=== PATIENT | male | born 1985 | race Caucasian/White ===

== ENCOUNTER 2016-09-07 09:44 | Inpatient (IN) | payer MEDICAID ==
[~2016-09-07] VITALS: Ht 175.3 cm; Wt 152.9 kg
[2016-09-07] VITALS (25 sets, daily range): BP systolic 122–154; BP diastolic 65–103
[2016-09-07] MEDS ORDERED: FURO40TA5 PO (10:03)
[2016-09-07] MEDS ORDERED: METF500T4 PO (10:03)
[2016-09-07] MEDS ORDERED: FUROSEMIDE 40MG/4ML VIAL IV STA (10:30)
[2016-09-07] MEDS: NITROGLYCERIN OINT 1GM/INCH UDPKT TD STA (10:30)
[2016-09-07] MEDS ORDERED: VANCOMYCIN 1 G PREMIX 200 ML IV SCH (10:45)
[2016-09-07] MEDS ORDERED: ASPIRIN 325MG EC TABLET PO ONE (10:45)
[2016-09-07] MEDS ORDERED: CEFTRIAXONE 1 G PREMIX 50 ML IV ONE (10:45)
[2016-09-07 10:57] LABS: BG BASE EXCESS 7.3 mmol/L (-2.0-2.0); BG CARBOXYHEMOGLOBIN 5.7 % (0.5-1.5); BG DEOXYHEMOGLOBIN 6.3 % (0.0-5.0); BG HCO3 ACT 36.8 mmol/L (22.0-26.0); BG METHEMOGLOBIN 0.1 % (0.0-1.5); BG OXYGEN SATURATION 93.3 % (92.0-98.5); BG OXYHEMOGLOBIN 87.9 % (94.0-97.0); BG PH 7.303 (7.350-7.450); BG PO2 70.7 mmHg (75.0-100.0); BG SAMPLE SITE LEFT RADIAL; BG TOTAL HEMOGLOBIN 14.9 g/dL (12.0-18.0); BG VENT MODE NASAL CANNULA
[2016-09-07] MEDS ORDERED: ETOMIDATE 2MG/ML 10ML VIAL IV ONE ×2 (11:09→16:45)
[2016-09-07] MEDS ORDERED: STERILE WATER FOR INJECTION 10ML VIAL ONE (11:09)
[2016-09-07] MEDS ORDERED: VECURONIUM BROMIDE 10 MG/VIAL IV ONE ×3 (11:09→16:45)
[2016-09-07 11:35] LABS: BASOPHILS % 0.4 % (0.0-2.0); DIFFERENTIAL COMMENT 0; EOSINOPHILS % 0.7 % (0.0-5.0); HEMATOCRIT. 46.7 % (42.0-52.0); HEMOGLOBIN. 14.4 g/dL (14.0-18.0); LYMPHOCYTES % 16.3 % (20.0-50.0); MEAN CORPUSCULAR HEMOGLOBIN 26.3 pg (28.0-32.0); MEAN CORPUSCULAR HGB CONC 30.9 g/dL (31.0-37.0); MEAN CORPUSCULAR VOLUME 85.1 fL (80.0-94.0); MEAN PLATELET VOLUME 9.7 fl (7.4-10.4); MONOCYTES % 6.3 % (2.0-8.0); NEUTROPHILS % 76.3 % (40.0-76.0); PLATELET 232 x1000/uL (130-400); RED BLOOD CELL COUNT 5.49 mill/uL (4.7-6.1); RED CELL DISTRIBUTION WIDTH 17.3 % (11.6-14.6); WHITE BLOOD COUNT 10.4 x1000/uL (4.5-11.0)
[2016-09-07 11:36] LABS: INR 1.1; PROTHROMBIN TIME 11.4 sec
[2016-09-07 11:44] LABS: ALANINE AMINOTRANSFERASE 62 IU/L (13-61); ALBUMIN 3.1 g/dL (3.4-5.0); CALCIUM 8.4 mg/dL (8.5-10.1); CARBON DIOXIDE 38 mEq/L (21-32); INDEX HEMOLYSI 1 (1-3); INDEX ICTERIC 1 (1-4); INDEX LIPEMIC 1 (1-3); NT PRO B-TYPE NATRIURETIC PEP 2189 pg/mL (5-125); TROPONIN I 0.05 ng/mL (0.00-0.04); UREA NITROGEN BLOOD 9 mg/dL (7-21); eGFR > 60 mL/min (>60)
[2016-09-07 12:05] LABS: ANION GAP 8; CHLORIDE 94 mEq/L (98-107)
[2016-09-07] MEDS ORDERED: GUAIFENESIN 200MG/10ML SUGAR FREE UDC PO PRN (15:30)
[2016-09-07] MEDS ORDERED: HYDRALAZINE 20MG/ML VIAL IV ONE (15:30)
[2016-09-07] MEDS ORDERED: CLONIDINE 0.1MG TABLET PO PRN (15:30)
[2016-09-07] MEDS ORDERED: MAGNESIUM/ALUMINUM HYDROXIDE/SIMETHICONE 30ML UDC PO PRN (15:30)
[2016-09-07] MEDS ORDERED: DOCUSATE SODIUM 100MG CAPSULE PO PRN (15:30)
[2016-09-07 16:14] LABS: BG BASE EXCESS 8.6 mmol/L (-2.0-2.0); BG CARBOXYHEMOGLOBIN 4.4 % (0.5-1.5); BG DEOXYHEMOGLOBIN 1.9 % (0.0-5.0); BG HCO3 ACT 44.4 mmol/L (22.0-26.0); BG METHEMOGLOBIN 0.3 % (0.0-1.5); BG OXYHEMOGLOBIN 93.4 % (94.0-97.0); BG PCO2 141.8 mmHg (35.0-45.0); BG PH 7.114 (7.350-7.450); BG PO2 139.9 mmHg (75.0-100.0); BG SAMPLE SITE LEFT RADIAL; BG TOTAL HEMOGLOBIN 15.6 g/dL (12.0-18.0); BG VENT MODE MASK - BIPAP; BG VENT RATE 18 set
[2016-09-07] MEDS ORDERED: PROPOFOL 10MG/ML 100ML 100 ML IV ONE ×2 (16:35→16:45)
[2016-09-07] MEDS: PROPOFOL 10MG/ML 100ML 100 ML IV PRN ×2 (19:27→23:52)
[2016-09-07] MEDS ORDERED: IPRATROPIUM/ALBUTEROL 0.5-3(2.5)MG/3ML NEB HHN PRN (19:30)
[2016-09-07] MEDS ORDERED: LEVOFLOXACIN 500MG PREMIX 100 ML IV SCH (20:00)
[2016-09-07 20:09] LABS: *AMPHETAMINES SCREEN URINE NEGATIVE (NEGATIVE); *BARBITURATES SCREEN URINE NEGATIVE (NEGATIVE); *BENZODIAZEPINES SCREEN URINE NEGATIVE (NEGATIVE); *COCAINE SCREEN URINE NEGATIVE (NEGATIVE); CANNABINOID URINE SCREEN PRESUMTIVE POSITIVE (NEGATIVE); ECSTASY MDMA SCREEN URINE NEGATIVE (NEGATIVE); METHADONE URINE SCREEN NEGATIVE (NEGATIVE); OPIATES URINE SCREEN NEGATIVE (NEGATIVE); PHENCYCLIDINE URINE SCREEN NEGATIVE (NEGATIVE)
[2016-09-07 20:36] LABS: CLARITY URINE CLEAR (CLEAR); COLOR URINE YELLOW (YELLOW); GLUCOSE URINE NEGATIVE (NEGATIVE); KETONES URINE NEGATIVE (NEGATIVE); LEUKOCYTE ESTERASE URINE NEGATIVE (NEGATIVE); NITRITE URINE NEGATIVE (NEGATIVE); OCCULT BLOOD URINE NEGATIVE (NEGATIVE); PROTEIN URINE NEGATIVE (NEGATIVE); SPECIFIC GRAVITY URINE 1.015 (1.005-1.030); UROBILINOGEN URINE 0.2 E.U./dL (0.2-1.0)
[2016-09-07] MEDS: IPRATROPIUM/ALBUTEROL 0.5-3(2.5)MG/3ML NEB HHN SCH (20:43)
[2016-09-07 21:36] LABS: BG BASE EXCESS 9.5 mmol/L (-2.0-2.0); BG CARBOXYHEMOGLOBIN 2.6 % (0.5-1.5); BG DEOXYHEMOGLOBIN 7.7 % (0.0-5.0); BG FRACTION INSPIRED OXYGEN 40; BG HCO3 ACT 39.1 mmol/L (22.0-26.0); BG METHEMOGLOBIN 0.3 % (0.0-1.5); BG OXYGEN SATURATION 92.1 % (92.0-98.5); BG OXYHEMOGLOBIN 89.4 % (94.0-97.0); BG PCO2 77.6 mmHg (35.0-45.0); BG PO2 65.1 mmHg (75.0-100.0); BG SAMPLE SITE RIGHT RADIAL; BG TIDAL VOLUME(mL) 550 mL; BG TOTAL HEMOGLOBIN 14.8 g/dL (12.0-18.0); BG VENT MODE VENT - A/C; BG VENT RATE 14 set
[2016-09-07] MEDS: METHYLPREDNISOLONE SOD SUCC 125 MG/2 ML VIAL IV SCH (21:47)
[2016-09-07] MEDS: ENOXAPARIN 40MG/0.4ML SYR SUBCUT SCH (21:47)
[2016-09-07] MEDS: VANCOMYCIN 1 G PREMIX 200 ML IV SCH (21:49)
[2016-09-07] MEDS: LEVOFLOXACIN 500MG PREMIX 100 ML IV SCH (23:52)
[2016-09-08] VITALS (51 sets, daily range): BP systolic 97–150; BP diastolic 32–112
[2016-09-08] MEDS: PROPOFOL 10MG/ML 100ML 100 ML IV PRN ×6 (04:01→22:30)
[2016-09-08 04:59] LABS: HEMATOCRIT. 44.4 % (42.0-52.0); HEMOGLOBIN. 13.8 g/dL (14.0-18.0); MEAN CORPUSCULAR HEMOGLOBIN 26.3 pg (28.0-32.0); MEAN CORPUSCULAR HGB CONC 31.1 g/dL (31.0-37.0); MEAN CORPUSCULAR VOLUME 84.7 fL (80.0-94.0); MEAN PLATELET VOLUME 9.8 fl (7.4-10.4); PLATELET 204 x1000/uL (130-400); RED BLOOD CELL COUNT 5.24 mill/uL (4.7-6.1); RED CELL DISTRIBUTION WIDTH 16.6 % (11.6-14.6); WHITE BLOOD COUNT 9.6 x1000/uL (4.5-11.0)
[2016-09-08 05:08] LABS: DIFFERENTIAL COMMENT 1
[2016-09-08 05:13] LABS: ALANINE AMINOTRANSFERASE 49 IU/L (13-61); ALBUMIN 2.6 g/dL (3.4-5.0); ANION GAP 11; CALCIUM 8.4 mg/dL (8.5-10.1); CARBON DIOXIDE 35 mEq/L (21-32); CHLORIDE 98 mEq/L (98-107); HDL CHOLESTEROL 23 mg/dL (40-59); INDEX HEMOLYSI 1 (1-3); INDEX ICTERIC 1 (1-4); INDEX LIPEMIC 1 (1-3); LDL CHOLESTEROL 61 mg/dL (5-100); TRIGLYCERIDE 140 mg/dL (0-150); TROPONIN I 0.02 ng/mL (0.00-0.04); UREA NITROGEN BLOOD 8 mg/dL (7-21); eGFR > 60 mL/min (>60)
[2016-09-08] MEDS: METHYLPREDNISOLONE SOD SUCC 125 MG/2 ML VIAL IV SCH ×3 (05:29→21:46)
[2016-09-08] MEDS: VANCOMYCIN 1 G PREMIX 200 ML IV SCH ×2 (05:29→13:14)
[2016-09-08 08:05] LABS: BG CARBOXYHEMOGLOBIN 0.5 % (0.5-1.5); BG DEOXYHEMOGLOBIN 4.7 % (0.0-5.0); BG FRACTION INSPIRED OXYGEN 50; BG HCO3 ACT 31.2 mmol/L (22.0-26.0); BG METHEMOGLOBIN 0.3 % (0.0-1.5); BG OXYGEN SATURATION 95.3 % (92.0-98.5); BG OXYHEMOGLOBIN 94.5 % (94.0-97.0); BG PCO2 42.7 mmHg (35.0-45.0); BG PH 7.482 (7.350-7.450); BG PO2 68.3 mmHg (75.0-100.0); BG SAMPLE SITE LEFT RADIAL; BG TIDAL VOLUME(mL) 650 mL; BG TOTAL HEMOGLOBIN 14.7 g/dL (12.0-18.0); BG VENT MODE VENT - A/C; BG VENT RATE 20 set
[2016-09-08] MEDS: IPRATROPIUM/ALBUTEROL 0.5-3(2.5)MG/3ML NEB HHN SCH ×4 (08:10→20:27)
[2016-09-08 08:26] LABS: ANISOCYTOSIS 1+; PLATELET ESTIMATE NORMAL
[2016-09-08] MEDS: ASPIRIN 81MG EC TABLET PO SCH (09:00)
[2016-09-08] MEDS: FUROSEMIDE 40MG/4ML VIAL IV SCH (09:05)
[2016-09-08] MEDS: PANTOPRAZOLE SODIUM 40 MG/VIAL IV SCH (09:05)
[2016-09-08] MEDS: ENOXAPARIN 40MG/0.4ML SYR SUBCUT SCH ×2 (09:13→21:45)
[2016-09-08] MEDS ORDERED: PROPOFOL 10MG/ML 100ML 100 ML IV PRN (14:30)
[2016-09-08] MEDS: VANCOMYCIN 1500MG in DEXTROSE 5% WATER 250ML IV SCH (21:45)
[2016-09-08] MEDS: LEVOFLOXACIN 500MG PREMIX 100 ML IV SCH (23:30)
[2016-09-09] VITALS (38 sets, daily range): BP systolic 85–168; BP diastolic 46–101
[2016-09-09] MEDS: PROPOFOL 10MG/ML 100ML 100 ML IV PRN ×4 (00:38→07:30)
[2016-09-09] MEDS: METHYLPREDNISOLONE SOD SUCC 125 MG/2 ML VIAL IV SCH (05:06)
[2016-09-09] MEDS: VANCOMYCIN 1500MG in DEXTROSE 5% WATER 250ML IV SCH (05:06)
[2016-09-09] MEDS: IPRATROPIUM/ALBUTEROL 0.5-3(2.5)MG/3ML NEB HHN SCH ×4 (08:36→20:43)
[2016-09-09 08:45] LABS: BG CARBOXYHEMOGLOBIN 0.7 % (0.5-1.5); BG DEOXYHEMOGLOBIN 3.6 % (0.0-5.0); BG FRACTION INSPIRED OXYGEN 50; BG HCO3 ACT 32.1 mmol/L (22.0-26.0); BG OXYGEN SATURATION 96.4 % (92.0-98.5); BG OXYHEMOGLOBIN 95.7 % (94.0-97.0); BG PCO2 47.2 mmHg (35.0-45.0); BG PH 7.451 (7.350-7.450); BG PO2 85.2 mmHg (75.0-100.0); BG SAMPLE SITE RIGHT RADIAL; BG TIDAL VOLUME(mL) 650 mL; BG TOTAL HEMOGLOBIN 14.9 g/dL (12.0-18.0); BG VENT MODE VENT - A/C; BG VENT RATE 20 set
[2016-09-09] MEDS: ENOXAPARIN 40MG/0.4ML SYR SUBCUT SCH ×2 (08:59→20:21)
[2016-09-09] MEDS: ASPIRIN 81MG EC TABLET PO SCH (08:59)
[2016-09-09] MEDS: PANTOPRAZOLE SODIUM 40 MG/VIAL IV SCH (08:59)
[2016-09-09] MEDS: FUROSEMIDE 40MG/4ML VIAL IV SCH (08:59)
[2016-09-09 09:39] LABS: BASOPHILS % 0.1 % (0.0-2.0); LYMPHOCYTES % 8.4 % (20.0-50.0); MEAN CORPUSCULAR HEMOGLOBIN 26.3 pg (28.0-32.0); MEAN CORPUSCULAR HGB CONC 31.2 g/dL (31.0-37.0); MEAN CORPUSCULAR VOLUME 84.1 fL (80.0-94.0); MEAN PLATELET VOLUME 9.9 fl (7.4-10.4); MONOCYTES % 4.4 % (2.0-8.0); NEUTROPHILS % 87.1 % (40.0-76.0); PLATELET 223 x1000/uL (130-400); RED BLOOD CELL COUNT 5.35 mill/uL (4.7-6.1); RED CELL DISTRIBUTION WIDTH 17.4 % (11.6-14.6); WHITE BLOOD COUNT 10.4 x1000/uL (4.5-11.0)
[2016-09-09 09:42] LABS: ANION GAP 13; CALCIUM 8.7 mg/dL (8.5-10.1); CARBON DIOXIDE 33 mEq/L (21-32); CHLORIDE 100 mEq/L (98-107); INDEX HEMOLYSI 1 (1-3); INDEX ICTERIC 1 (1-4); INDEX LIPEMIC 1 (1-3); UREA NITROGEN BLOOD 13 mg/dL (7-21)
[2016-09-09 09:43] LABS: eGFR > 60 mL/min (>60)
[2016-09-09 11:23] LABS: BG BASE EXCESS 6.7 mmol/L (-2.0-2.0); BG CARBOXYHEMOGLOBIN 0.6 % (0.5-1.5); BG DEOXYHEMOGLOBIN 3.1 % (0.0-5.0); BG FRACTION INSPIRED OXYGEN 50; BG HCO3 ACT 33.7 mmol/L (22.0-26.0); BG METHEMOGLOBIN 0.4 % (0.0-1.5); BG OXYGEN SATURATION 96.9 % (92.0-98.5); BG OXYHEMOGLOBIN 95.9 % (94.0-97.0); BG PH 7.389 (7.350-7.450); BG PO2 97.8 mmHg (75.0-100.0); BG PRESSURE SUPPORT 8; BG SAMPLE SITE RIGHT RADIAL; BG TIDAL VOLUME(mL) 650 mL; BG VENT MODE VENT - SIMV; BG VENT RATE 8 set
[2016-09-09] MEDS ORDERED: QUETIAPINE FUMARATE 25MG TABLET PO SCH (11:30)
[2016-09-09] MEDS: THEOPHYLLINE ANHYDROUS 80 MG/15 ML 120ML PO SCH ×3 (13:00→21:00)
[2016-09-09] MEDS: METHYLPREDNISOLONE SOD SUCC 40 MG/ML VIAL IV SCH ×2 (13:51→21:51)
[2016-09-09] MEDS ORDERED: THEOPHYLLINE ANHYDROUS 200 MG PO SCH (21:00)
[2016-09-09] MEDS: QUETIAPINE FUMARATE 25MG TABLET PO SCH (21:00)
[2016-09-09] MEDS: MORPHINE SULFATE 2 MG/ML CPJ (NOT FOR IM USE) IV PRN ×2 (21:52→23:53)
[2016-09-09] MEDS: ONDANSETRON HCL 4MG/2ML VIAL IV PRN (23:53)
[2016-09-10] VITALS (41 sets, daily range): BP systolic 95–158; BP diastolic 46–103
[2016-09-10] MEDS: METHYLPREDNISOLONE SOD SUCC 40 MG/ML VIAL IV SCH ×2 (05:37→18:38)
[2016-09-10] MEDS: MORPHINE SULFATE 2 MG/ML CPJ (NOT FOR IM USE) IV PRN ×2 (06:25→19:44)
[2016-09-10] MEDS: ASPIRIN 81MG EC TABLET PO SCH (09:00)
[2016-09-10] MEDS: QUETIAPINE FUMARATE 25MG TABLET PO SCH ×2 (09:00→20:02)
[2016-09-10] MEDS: THEOPHYLLINE ANHYDROUS 80 MG/15 ML 120ML PO SCH ×4 (09:00→20:02)
[2016-09-10] MEDS: IPRATROPIUM/ALBUTEROL 0.5-3(2.5)MG/3ML NEB HHN SCH ×4 (09:11→21:16)
[2016-09-10] MEDS: PANTOPRAZOLE SODIUM 40 MG/VIAL IV SCH (09:32)
[2016-09-10] MEDS: ENOXAPARIN 40MG/0.4ML SYR SUBCUT SCH ×2 (09:32→20:01)
[2016-09-10] MEDS: FUROSEMIDE 40MG/4ML VIAL IV SCH (09:32)
[2016-09-10] MEDS ORDERED: RACEPINEPHRINE 2.25% 0.5ML NEB VIAL HHN NR ×2 (12:15→15:00)
[2016-09-10] MEDS: FAMOTIDINE 20MG/2ML VIAL IV SCH ×2 (12:20→21:21)
[2016-09-10 13:02] LABS: BG BASE EXCESS 10.7 mmol/L (-2.0-2.0); BG CARBOXYHEMOGLOBIN 1.3 % (0.5-1.5); BG CPAP (cmH2O) 0 cm(H2O); BG DEOXYHEMOGLOBIN 1.2 % (0.0-5.0); BG HCO3 ACT 41.3 mmol/L (22.0-26.0); BG METHEMOGLOBIN 0.4 % (0.0-1.5); BG OXYGEN SATURATION 98.8 % (92.0-98.5); BG OXYHEMOGLOBIN 97.1 % (94.0-97.0); BG PCO2 85.6 mmHg (35.0-45.0); BG PH 7.301 (7.350-7.450); BG PO2 142.3 mmHg (75.0-100.0); BG SAMPLE SITE RIGHT RADIAL; BG TOTAL HEMOGLOBIN 15.1 g/dL (12.0-18.0); BG VENT MODE VENT - CPAP
[2016-09-10] MEDS ORDERED: ACETYLCYSTEINE 100MG/ML 10% VIAL 4ML INH SCH (16:00)
[2016-09-10 16:02] LABS: BG BASE EXCESS 9.3 mmol/L (-2.0-2.0); BG CARBOXYHEMOGLOBIN 1.4 % (0.5-1.5); BG DEOXYHEMOGLOBIN 8.7 % (0.0-5.0); BG FRACTION INSPIRED OXYGEN 60; BG HCO3 ACT 39.9 mmol/L (22.0-26.0); BG METHEMOGLOBIN 0.4 % (0.0-1.5); BG OXYGEN SATURATION 91.1 % (92.0-98.5); BG OXYHEMOGLOBIN 89.5 % (94.0-97.0); BG PH 7.289 (7.350-7.450); BG PO2 67.9 mmHg (75.0-100.0); BG SAMPLE SITE RIGHT BRACHIAL; BG TOTAL HEMOGLOBIN 15.2 g/dL (12.0-18.0); BG VENT MODE MASK - AEROSOL
[2016-09-10] MEDS: DIPHENHYDRAMINE 50MG/ML VIAL IV PRN (21:21)
[2016-09-11] VITALS (47 sets, daily range): BP systolic 113–166; BP diastolic 64–110
[2016-09-11] MEDS: METHYLPREDNISOLONE SOD SUCC 40 MG/ML VIAL IV SCH (05:57)
[2016-09-11] MEDS ORDERED: RACEPINEPHRINE 2.25% 0.5ML NEB VIAL HHN NR (07:26)
[2016-09-11] MEDS: IPRATROPIUM/ALBUTEROL 0.5-3(2.5)MG/3ML NEB HHN SCH ×4 (07:57→19:56)
[2016-09-11] MEDS: FUROSEMIDE 40MG/4ML VIAL IV SCH (08:51)
[2016-09-11] MEDS: METHYLPREDNISOLONE SOD SUCC 125 MG/2 ML VIAL IV SCH ×3 (08:51→22:43)
[2016-09-11] MEDS: FAMOTIDINE 20MG/2ML VIAL IV SCH ×2 (08:51→21:06)
[2016-09-11] MEDS: ENOXAPARIN 40MG/0.4ML SYR SUBCUT SCH ×2 (08:53→21:08)
[2016-09-11 08:54] LABS: BG BASE EXCESS 6.9 mmol/L (-2.0-2.0); BG CARBOXYHEMOGLOBIN 1.3 % (0.5-1.5); BG DEOXYHEMOGLOBIN 0.7 % (0.0-5.0); BG FRACTION INSPIRED OXYGEN 75; BG HCO3 ACT 38.6 mmol/L (22.0-26.0); BG METHEMOGLOBIN 0.5 % (0.0-1.5); BG OXYGEN SATURATION 99.3 % (92.0-98.5); BG OXYHEMOGLOBIN 97.5 % (94.0-97.0); BG PCO2 95.2 mmHg (35.0-45.0); BG PH 7.226 (7.350-7.450); BG PO2 190.4 mmHg (75.0-100.0); BG PRESSURE SUPPORT 10; BG SAMPLE SITE LEFT RADIAL; BG TOTAL HEMOGLOBIN 15.1 g/dL (12.0-18.0); BG VENT MODE MASK - BIPAP; BG VENT RATE 18 set
[2016-09-11] MEDS: THEOPHYLLINE ANHYDROUS 80 MG/15 ML 120ML PO SCH ×4 (09:00→21:06)
[2016-09-11] MEDS: QUETIAPINE FUMARATE 25MG TABLET PO SCH ×2 (09:00→21:06)
[2016-09-11] MEDS: ASPIRIN 81MG EC TABLET PO SCH (09:00)
[2016-09-11] MEDS: PROPOFOL 10MG/ML 100ML 100 ML IV PRN ×7 (10:20→23:39)
[2016-09-11 11:30] LABS: BG CARBOXYHEMOGLOBIN 1.7 % (0.5-1.5); BG DEOXYHEMOGLOBIN 4.1 % (0.0-5.0); BG FRACTION INSPIRED OXYGEN 75; BG METHEMOGLOBIN 0.2 % (0.0-1.5); BG OXYGEN SATURATION 95.8 % (92.0-98.5); BG PH 7.432 (7.350-7.450); BG PO2 69.2 mmHg (75.0-100.0); BG SAMPLE SITE RIGHT RADIAL; BG TIDAL VOLUME(mL) 650 mL; BG TOTAL HEMOGLOBIN 15.7 g/dL (12.0-18.0); BG VENT MODE VENT - A/C; BG VENT RATE 16 set
[2016-09-11] MEDS: MORPHINE SULFATE 2 MG/ML CPJ (NOT FOR IM USE) IV PRN (15:32)
[2016-09-11 18:19] LABS: BG BASE EXCESS 12.4 mmol/L (-2.0-2.0); BG DEOXYHEMOGLOBIN 2.3 % (0.0-5.0); BG FRACTION INSPIRED OXYGEN 80; BG HCO3 ACT 41.1 mmol/L (22.0-26.0); BG METHEMOGLOBIN 0.3 % (0.0-1.5); BG OXYGEN SATURATION 97.7 % (92.0-98.5); BG OXYHEMOGLOBIN 96.4 % (94.0-97.0); BG PCO2 70.7 mmHg (35.0-45.0); BG PH 7.382 (7.350-7.450); BG PO2 98.2 mmHg (75.0-100.0); BG SAMPLE SITE RIGHT RADIAL; BG TIDAL VOLUME(mL) 650 mL; BG TOTAL HEMOGLOBIN 15.3 g/dL (12.0-18.0); BG VENT MODE VENT - A/C; BG VENT RATE 16 set
[2016-09-12] VITALS (49 sets, daily range): BP systolic 40–196; BP diastolic 23–129
[2016-09-12] MEDS: IPRATROPIUM/ALBUTEROL 0.5-3(2.5)MG/3ML NEB HHN SCH ×5 (00:15→20:49)
[2016-09-12] MEDS: PROPOFOL 10MG/ML 100ML 100 ML IV PRN ×3 (02:24→06:59)
[2016-09-12] MEDS: METHYLPREDNISOLONE SOD SUCC 125 MG/2 ML VIAL IV SCH ×3 (05:43→23:15)
[2016-09-12] MEDS: FUROSEMIDE 40MG/4ML VIAL IV SCH (09:47)
[2016-09-12] MEDS: ASPIRIN 81MG EC TABLET PO SCH (09:47)
[2016-09-12] MEDS: THEOPHYLLINE ANHYDROUS 80 MG/15 ML 120ML PO SCH ×4 (09:47→20:53)
[2016-09-12] MEDS: FAMOTIDINE 20MG/2ML VIAL IV SCH ×2 (09:47→20:52)
[2016-09-12] MEDS: QUETIAPINE FUMARATE 50MG TABLET PO SCH ×2 (09:47→20:52)
[2016-09-12] MEDS: ENOXAPARIN 40MG/0.4ML SYR SUBCUT SCH ×2 (09:48→20:52)
[2016-09-12] MEDS: MORPHINE SULFATE 2 MG/ML CPJ (NOT FOR IM USE) IV PRN ×4 (10:28→21:25)
[2016-09-12] MEDS: DIPHENHYDRAMINE 50MG/ML VIAL IV PRN (18:18)
[2016-09-12] MEDS: ACETAMINOPHEN 325MG TABLET PO PRN (18:18)
[2016-09-12] MEDS ORDERED: QUETIAPINE FUMARATE 50MG TABLET PO SCH (21:00)
[2016-09-13] VITALS (49 sets, daily range): BP systolic 118–155; BP diastolic 43–103
[2016-09-13] MEDS: MORPHINE SULFATE 2 MG/ML CPJ (NOT FOR IM USE) IV PRN ×5 (00:37→19:58)
[2016-09-13] MEDS: ACETAMINOPHEN 325MG TABLET PO PRN (00:54)
[2016-09-13] MEDS: METHYLPREDNISOLONE SOD SUCC 125 MG/2 ML VIAL IV SCH (06:27)
[2016-09-13] MEDS: IPRATROPIUM/ALBUTEROL 0.5-3(2.5)MG/3ML NEB HHN SCH ×4 (08:21→20:39)
[2016-09-13] MEDS: FAMOTIDINE 20MG/2ML VIAL IV SCH ×2 (09:44→20:40)
[2016-09-13] MEDS: QUETIAPINE FUMARATE 50MG TABLET PO SCH ×2 (09:44→20:40)
[2016-09-13] MEDS: FUROSEMIDE 40MG/4ML VIAL IV SCH (09:44)
[2016-09-13] MEDS: ASPIRIN 81MG EC TABLET PO SCH (09:44)
[2016-09-13] MEDS: ENOXAPARIN 40MG/0.4ML SYR SUBCUT SCH ×2 (09:47→20:40)
[2016-09-13] MEDS: THEOPHYLLINE ANHYDROUS 80 MG/15 ML 120ML PO SCH ×4 (09:48→20:41)
[2016-09-13 11:01] LABS: BG BASE EXCESS 8.2 mmol/L (-2.0-2.0); BG CARBOXYHEMOGLOBIN 1.1 % (0.5-1.5); BG DEOXYHEMOGLOBIN 4.9 % (0.0-5.0); BG FRACTION INSPIRED OXYGEN 80; BG HCO3 ACT 33.2 mmol/L (22.0-26.0); BG METHEMOGLOBIN 0.3 % (0.0-1.5); BG OXYHEMOGLOBIN 93.7 % (94.0-97.0); BG PCO2 46.2 mmHg (35.0-45.0); BG PH 7.474 (7.350-7.450); BG SAMPLE SITE LEFT RADIAL; BG TIDAL VOLUME(mL) 650 mL; BG TOTAL HEMOGLOBIN 16.9 g/dL (12.0-18.0); BG VENT MODE VENT - A/C; BG VENT RATE 16 set
[2016-09-13] MEDS: DIPHENHYDRAMINE 50MG/ML VIAL IV PRN ×2 (12:51→20:40)
[2016-09-13] MEDS: METHYLPREDNISOLONE SOD SUCC 40 MG/ML VIAL IV SCH ×2 (15:58→22:47)
[2016-09-14] VITALS (43 sets, daily range): BP systolic 96–163; BP diastolic 45–110
[2016-09-14] MEDS: MORPHINE SULFATE 2 MG/ML CPJ (NOT FOR IM USE) IV PRN ×5 (00:13→20:18)
[2016-09-14 04:59] LABS: HEMATOCRIT 49.9 % (42.0-52.0); HEMOGLOBIN 15.5 g/dL (14.0-18.0); MEAN CORPUSCULAR HEMOGLOBIN 25.9 pg (28.0-32.0); MEAN CORPUSCULAR VOLUME 83.5 fL (80.0-94.0); PLATELET 184 x1000/uL (130-400); RED BLOOD CELL COUNT 5.97 mill/uL (4.7-6.1); RED CELL DISTRIBUTION WIDTH 17.4 % (11.6-14.6); WHITE BLOOD COUNT 13.1 x1000/uL (4.5-11.0)
[2016-09-14] MEDS: METHYLPREDNISOLONE SOD SUCC 40 MG/ML VIAL IV SCH ×3 (05:58→22:54)
[2016-09-14] MEDS: FUROSEMIDE 20MG/2ML VIAL IV SCH (08:56)
[2016-09-14] MEDS: FAMOTIDINE 20MG/2ML VIAL IV SCH ×2 (08:56→20:17)
[2016-09-14] MEDS: ASPIRIN 81MG EC TABLET PO SCH (08:56)
[2016-09-14] MEDS: QUETIAPINE FUMARATE 50MG TABLET PO SCH ×2 (08:56→20:17)
[2016-09-14] MEDS: ENOXAPARIN 40MG/0.4ML SYR SUBCUT SCH ×2 (08:57→20:17)
[2016-09-14] MEDS: THEOPHYLLINE ANHYDROUS 80 MG/15 ML 120ML PO SCH ×4 (09:00→20:17)
[2016-09-14] MEDS: ACETAMINOPHEN 325MG TABLET PO PRN (13:24)
[2016-09-14] MEDS: IPRATROPIUM/ALBUTEROL 0.5-3(2.5)MG/3ML NEB HHN SCH ×3 (18:22→20:53)
[2016-09-14] MEDS: RACEPINEPHRINE 2.25% 0.5ML NEB VIAL HHN PRN (18:23)
[2016-09-15] VITALS (50 sets, daily range): BP systolic 55–199; BP diastolic 20–173
[2016-09-15] MEDS: MORPHINE SULFATE 2 MG/ML CPJ (NOT FOR IM USE) IV PRN ×10 (00:28→22:33)
[2016-09-15] MEDS: METHYLPREDNISOLONE SOD SUCC 40 MG/ML VIAL IV SCH ×3 (05:36→20:36)
[2016-09-15 05:59] LABS: ANION GAP 14; CARBON DIOXIDE 32 mEq/L (21-32); CHLORIDE 96 mEq/L (98-107); UREA NITROGEN BLOOD 28 mg/dL (7-21)
[2016-09-15 06:00] LABS: CALCIUM 8.5 mg/dL (8.5-10.1); INDEX HEMOLYSI 4 (1-3); INDEX ICTERIC 1 (1-4); INDEX LIPEMIC 1 (1-3); eGFR > 60 mL/min (>60)
[2016-09-15 06:52] LABS: THYROID STIMULATING HORMONE 0.95 mIU/mL (0.36-3.74)
[2016-09-15 06:59] LABS: THEOPHYLLINE < 2.0 ug/mL (10-20)
[2016-09-15] MEDS: IPRATROPIUM/ALBUTEROL 0.5-3(2.5)MG/3ML NEB HHN SCH ×3 (08:40→20:23)
[2016-09-15] MEDS: FUROSEMIDE 20MG/2ML VIAL IV SCH (08:55)
[2016-09-15] MEDS: FAMOTIDINE 20MG/2ML VIAL IV SCH ×2 (08:55→20:36)
[2016-09-15] MEDS: ASPIRIN 81MG EC TABLET PO SCH (08:55)
[2016-09-15] MEDS: QUETIAPINE FUMARATE 50MG TABLET PO SCH ×2 (08:55→20:35)
[2016-09-15] MEDS: ENOXAPARIN 40MG/0.4ML SYR SUBCUT SCH ×2 (08:56→20:38)
[2016-09-15] MEDS: THEOPHYLLINE ANHYDROUS 80 MG/15 ML 120ML PO SCH ×4 (08:57→20:39)
[2016-09-15 09:07] LABS: BG CARBOXYHEMOGLOBIN 0.3 % (0.5-1.5); BG DEOXYHEMOGLOBIN 2.2 % (0.0-5.0); BG FRACTION INSPIRED OXYGEN 80; BG HCO3 ACT 29.5 mmol/L (22.0-26.0); BG METHEMOGLOBIN 0.2 % (0.0-1.5); BG OXYGEN SATURATION 97.8 % (92.0-98.5); BG OXYHEMOGLOBIN 97.3 % (94.0-97.0); BG PCO2 46.8 mmHg (35.0-45.0); BG PH 7.418 (7.350-7.450); BG PO2 104.7 mmHg (75.0-100.0); BG SAMPLE SITE RIGHT RADIAL; BG TIDAL VOLUME(mL) 650 mL; BG VENT MODE VENT - A/C; BG VENT RATE 16 set
[2016-09-16] VITALS (47 sets, daily range): BP systolic 84–162; BP diastolic 39–107
[2016-09-16] MEDS: MORPHINE SULFATE 2 MG/ML CPJ (NOT FOR IM USE) IV PRN ×4 (00:13→16:05)
[2016-09-16] MEDS: METHYLPREDNISOLONE SOD SUCC 40 MG/ML VIAL IV SCH (05:05)
[2016-09-16] MEDS: ONDANSETRON HCL 4MG/2ML VIAL IV PRN (05:59)
[2016-09-16] MEDS: QUETIAPINE FUMARATE 50MG TABLET PO SCH ×2 (08:44→20:18)
[2016-09-16] MEDS: IPRATROPIUM/ALBUTEROL 0.5-3(2.5)MG/3ML NEB HHN SCH ×4 (08:44→20:21)
[2016-09-16] MEDS: FUROSEMIDE 20MG/2ML VIAL IV SCH (08:45)
[2016-09-16] MEDS: FAMOTIDINE 20MG/2ML VIAL IV SCH ×2 (08:45→20:18)
[2016-09-16] MEDS: THEOPHYLLINE ANHYDROUS 80 MG/15 ML 120ML PO SCH (08:46)
[2016-09-16] MEDS: ENOXAPARIN 40MG/0.4ML SYR SUBCUT SCH (09:00)
[2016-09-16 09:23] LABS: BG BASE EXCESS 6.4 mmol/L (-2.0-2.0); BG CARBOXYHEMOGLOBIN 1.2 % (0.5-1.5); BG DEOXYHEMOGLOBIN 2.9 % (0.0-5.0); BG FRACTION INSPIRED OXYGEN 70; BG HCO3 ACT 30.5 mmol/L (22.0-26.0); BG METHEMOGLOBIN 0.4 % (0.0-1.5); BG OXYGEN SATURATION 97.1 % (92.0-98.5); BG OXYHEMOGLOBIN 95.5 % (94.0-97.0); BG PCO2 41.2 mmHg (35.0-45.0); BG PH 7.487 (7.350-7.450); BG PO2 84.6 mmHg (75.0-100.0); BG SAMPLE SITE LEFT BRACHIAL; BG TIDAL VOLUME(mL) 650 mL; BG TOTAL HEMOGLOBIN 17.6 g/dL (12.0-18.0); BG VENT MODE VENT - A/C; BG VENT RATE 16 set
[2016-09-16] MEDS ORDERED: SORBITOL 70% SOLN 30ML PO SCH (16:00)
[2016-09-16] MEDS ORDERED: METOCLOPRAMIDE HCL 10MG/2ML VIAL IV SCH (16:00)
[2016-09-16] MEDS: SENNOSIDES/DOCUSATE SOD 8.6/50MG TABLET NG SCH (16:54)
[2016-09-17] VITALS (45 sets, daily range): BP systolic 112–156; BP diastolic 49–107
[2016-09-17] MEDS: IPRATROPIUM/ALBUTEROL 0.5-3(2.5)MG/3ML NEB HHN SCH ×6 (00:13→20:45)
[2016-09-17] MEDS: MORPHINE SULFATE 2 MG/ML CPJ (NOT FOR IM USE) IV PRN ×6 (01:30→22:08)
[2016-09-17 05:41] LABS: BASOPHILS % 0.2 % (0.0-2.0); DIFFERENTIAL COMMENT 0; EOSINOPHILS % 0.3 % (0.0-5.0); HEMATOCRIT. 55.4 % (42.0-52.0); HEMOGLOBIN. 17.2 g/dL (14.0-18.0); MEAN CORPUSCULAR VOLUME 83.9 fL (80.0-94.0); MEAN PLATELET VOLUME 11.1 fl (7.4-10.4); MONOCYTES % 7.3 % (2.0-8.0); NEUTROPHILS % 79.2 % (40.0-76.0); PLATELET 174 x1000/uL (130-400); RED CELL DISTRIBUTION WIDTH 17.8 % (11.6-14.6); WHITE BLOOD COUNT 17.1 x1000/uL (4.5-11.0)
[2016-09-17 05:46] LABS: INR 1.2; PARTIAL THROMBOPLASTIN TIME 26.8 sec (24.0-34.0); PROTHROMBIN TIME 12.9 sec
[2016-09-17 06:33] LABS: ANION GAP 12; CALCIUM 9.1 mg/dL (8.5-10.1); CARBON DIOXIDE 34 mEq/L (21-32); CHLORIDE 98 mEq/L (98-107); INDEX HEMOLYSI 1 (1-3); INDEX ICTERIC 1 (1-4); INDEX LIPEMIC 1 (1-3); UREA NITROGEN BLOOD 37 mg/dL (7-21); eGFR > 60 mL/min (>60)
[2016-09-17] MEDS: FUROSEMIDE 20MG/2ML VIAL IV SCH (08:33)
[2016-09-17] MEDS: QUETIAPINE FUMARATE 50MG TABLET PO SCH ×2 (08:33→20:28)
[2016-09-17] MEDS: FAMOTIDINE 20MG/2ML VIAL IV SCH ×2 (08:33→20:28)
[2016-09-17] MEDS ORDERED: METHYLPREDNISOLONE SOD SUCC 40 MG/ML VIAL IV SCH (09:00)
[2016-09-17] MEDS: SENNOSIDES/DOCUSATE SOD 8.6/50MG TABLET NG SCH (09:00)
[2016-09-17 09:55] LABS: BG BASE EXCESS 7.1 mmol/L (-2.0-2.0); BG CARBOXYHEMOGLOBIN 0.9 % (0.5-1.5); BG CPAP (cmH2O) 0 cm(H2O); BG DEOXYHEMOGLOBIN 6.2 % (0.0-5.0); BG HCO3 ACT 35.6 mmol/L (22.0-26.0); BG METHEMOGLOBIN 0.6 % (0.0-1.5); BG OXYGEN SATURATION 93.7 % (92.0-98.5); BG OXYHEMOGLOBIN 92.3 % (94.0-97.0); BG PH 7.363 (7.350-7.450); BG PO2 69.9 mmHg (75.0-100.0); BG SAMPLE SITE RIGHT RADIAL; BG TOTAL HEMOGLOBIN 18.5 g/dL (12.0-18.0); BG VENT MODE VENT - CPAP
[2016-09-17] MEDS ORDERED: POTASSIUM CHLORIDE INJ 40 MEQ in DEXT 5% WATER 250 ML IV SCH (11:00)
[2016-09-17] MEDS ORDERED: CEFAZOLIN 1000MG PREMIX 50 ML IV SCH (12:00)
[2016-09-17] MEDS ORDERED: SODIUM CHLORIDE 0.9% 1,000 ML IV SCH (15:30)
[2016-09-17] MEDS ORDERED: FENTANYL CITRATE/PF 50MCG/ML 2ML VIAL ONE (15:56)
[2016-09-17] MEDS ORDERED: MIDAZOLAM HCL 2 MG/2 ML VIAL ONE (15:56)
[2016-09-17] MEDS ORDERED: ROCURONIUM BROMIDE 10MG/ML VIAL 5ML IV ONE (16:05)
[2016-09-17] MEDS ORDERED: SODIUM CHLORIDE 0.9% 10ML VIAL ONE (16:05)
[2016-09-17] MEDS ORDERED: LABETALOL HCL 5MG/ML VIAL 20ML IV ONE (16:05)
[2016-09-17] MEDS ORDERED: DEXAMETHASONE 4MG/ML 1ML VIAL ONE (16:05)
[2016-09-17] MEDS ORDERED: ONDANSETRON HCL 4MG/2ML VIAL ONE (16:05)
[2016-09-17] MEDS ORDERED: VECURONIUM BROMIDE 10 MG/VIAL IV ONE (16:05)
[2016-09-18] VITALS (73 sets, daily range): BP systolic 51–172; BP diastolic 19–104
[2016-09-18] MEDS: MORPHINE SULFATE 2 MG/ML CPJ (NOT FOR IM USE) IV PRN ×7 (00:23→18:45)
[2016-09-18 05:46] LABS: INR 1.3; PROTHROMBIN TIME 13.7 sec
[2016-09-18] MEDS: IPRATROPIUM/ALBUTEROL 0.5-3(2.5)MG/3ML NEB HHN SCH ×4 (08:19→20:50)
[2016-09-18] MEDS: FUROSEMIDE 20MG/2ML VIAL IV SCH (08:33)
[2016-09-18] MEDS: QUETIAPINE FUMARATE 50MG TABLET PO SCH ×2 (08:34→20:55)
[2016-09-18] MEDS: SENNOSIDES/DOCUSATE SOD 8.6/50MG TABLET NG SCH (08:34)
[2016-09-18] MEDS ORDERED: FENTANYL CITRATE/PF 50MCG/ML 2ML VIAL ONE (11:07)
[2016-09-18] MEDS ORDERED: SIMETHICONE 40 MG/0.6 ML 30ML ONE (11:07)
[2016-09-18] MEDS ORDERED: MIDAZOLAM HCL 5 MG/5 ML VIAL ONE (11:07)
[2016-09-18] MEDS: DIPHENHYDRAMINE 50MG/ML VIAL IV PRN (11:35)
[2016-09-18] MEDS ORDERED: CEFAZOLIN 1000MG PREMIX 50 ML IV NR (12:00)
[2016-09-18] MEDS ORDERED: MIDAZOLAM HCL 2 MG/2 ML VIAL IV PRN (12:05)
[2016-09-18] MEDS ORDERED: FENTANYL CITRATE/PF 50MCG/ML 2ML VIAL IV PRN (12:05)
[2016-09-18] MEDS: DEXAMETHASONE 4MG/ML 1ML VIAL IV SCH ×2 (12:38→17:58)
[2016-09-18] MEDS: ACETAMINOPHEN 650MG/20.3ML UDC PO PRN (17:59)
[2016-09-18] MEDS: FAMOTIDINE 20MG TABLET PO SCH (20:55)
[2016-09-19] VITALS (53 sets, daily range): BP systolic 88–158; BP diastolic 30–96
[2016-09-19] MEDS: DEXAMETHASONE 4MG/ML 1ML VIAL IV SCH ×4 (00:02→18:30)
[2016-09-19] MEDS: MORPHINE SULFATE 2 MG/ML CPJ (NOT FOR IM USE) IV PRN ×5 (03:37→21:18)
[2016-09-19] MEDS: IPRATROPIUM/ALBUTEROL 0.5-3(2.5)MG/3ML NEB HHN SCH ×5 (08:17→21:15)
[2016-09-19 09:06] LABS: BG BASE EXCESS 6.7 mmol/L (-2.0-2.0); BG CARBOXYHEMOGLOBIN 0.4 % (0.5-1.5); BG DEOXYHEMOGLOBIN 4.8 % (0.0-5.0); BG HCO3 ACT 33.1 mmol/L (22.0-26.0); BG METHEMOGLOBIN 0.5 % (0.0-1.5); BG OXYGEN SATURATION 95.2 % (92.0-98.5); BG OXYHEMOGLOBIN 94.3 % (94.0-97.0); BG PCO2 52.4 mmHg (35.0-45.0); BG PH 7.419 (7.350-7.450); BG PO2 76.2 mmHg (75.0-100.0); BG SAMPLE SITE RIGHT RADIAL; BG TIDAL VOLUME(mL) 650 mL; BG TOTAL HEMOGLOBIN 18.6 g/dL (12.0-18.0); BG VENT MODE VENT - SIMV; BG VENT RATE 12 set
[2016-09-19] MEDS: SENNOSIDES/DOCUSATE SOD 8.6/50MG TABLET NG SCH (09:30)
[2016-09-19] MEDS: QUETIAPINE FUMARATE 50MG TABLET PO SCH ×2 (09:31→20:19)
[2016-09-19] MEDS: FUROSEMIDE 20MG/2ML VIAL IV SCH (09:36)
[2016-09-19 16:58] LABS: ANION GAP 11; CALCIUM 9.6 mg/dL (8.5-10.1); CARBON DIOXIDE 37 mEq/L (21-32); CHLORIDE 99 mEq/L (98-107); INDEX HEMOLYSI 1 (1-3); INDEX ICTERIC 1 (1-4); INDEX LIPEMIC 1 (1-3); UREA NITROGEN BLOOD 29 mg/dL (7-21)
[2016-09-19 17:00] LABS: eGFR > 60 mL/min (>60)
[2016-09-19] MEDS: DIPHENHYDRAMINE 50MG/ML VIAL IV PRN (18:29)
[2016-09-19] MEDS: FAMOTIDINE 20MG TABLET PO SCH (20:19)
[2016-09-20] VITALS (43 sets, daily range): BP systolic 102–158; BP diastolic 52–98
[2016-09-20] MEDS: DEXAMETHASONE 4MG/ML 1ML VIAL IV SCH ×3 (00:25→12:12)
[2016-09-20] MEDS: MORPHINE SULFATE 2 MG/ML CPJ (NOT FOR IM USE) IV PRN ×6 (00:27→20:55)
[2016-09-20] MEDS: IPRATROPIUM/ALBUTEROL 0.5-3(2.5)MG/3ML NEB HHN SCH ×6 (00:32→20:41)
[2016-09-20] MEDS: FUROSEMIDE 20MG/2ML VIAL IV SCH (08:04)
[2016-09-20] MEDS: QUETIAPINE FUMARATE 50MG TABLET PO SCH ×2 (08:04→20:39)
[2016-09-20] MEDS: SENNOSIDES/DOCUSATE SOD 8.6/50MG TABLET NG SCH (08:04)
[2016-09-20 11:55] LABS: HEPATITIS B SURFACE ANTIGEN NEGATIVE
[2016-09-20 12:24] LABS: HEPATITIS C VIR.AB 0.34 INDEXVAL (0.00-0.80)
[2016-09-20] MEDS: THEOPHYLLINE ANHYDROUS 80 MG/15 ML 120ML PO SCH ×2 (14:11→21:13)
[2016-09-20] MEDS: ACETAMINOPHEN 325MG TABLET PEG PRN (16:32)
[2016-09-20] MEDS: FAMOTIDINE 20MG TABLET PO SCH (20:39)
[2016-09-20] MEDS: ENOXAPARIN 40MG/0.4ML SYR SUBCUT SCH (20:40)
[2016-09-20] MEDS: DIPHENHYDRAMINE 50MG/ML VIAL IV PRN (20:55)
[2016-09-20] MEDS: DEXAMETHASONE 4MG TABLET PO SCH (21:13)
[2016-09-21] VITALS (14 sets, daily range): BP systolic 106–166; BP diastolic 41–97
[2016-09-21] MEDS: IPRATROPIUM/ALBUTEROL 0.5-3(2.5)MG/3ML NEB HHN SCH ×6 (00:16→20:13)
[2016-09-21] MEDS: MORPHINE SULFATE 2 MG/ML CPJ (NOT FOR IM USE) IV PRN ×7 (01:26→21:15)
[2016-09-21] MEDS: THEOPHYLLINE ANHYDROUS 80 MG/15 ML 120ML PO SCH ×3 (05:33→22:24)
[2016-09-21] MEDS: ENOXAPARIN 40MG/0.4ML SYR SUBCUT SCH ×2 (08:45→21:20)
[2016-09-21] MEDS: QUETIAPINE FUMARATE 50MG TABLET PO SCH ×2 (08:45→21:19)
[2016-09-21] MEDS: FUROSEMIDE 20MG/2ML VIAL IV SCH (08:45)
[2016-09-21] MEDS: DEXAMETHASONE 4MG TABLET PO SCH ×2 (08:45→21:20)
[2016-09-21] MEDS: SENNOSIDES/DOCUSATE SOD 8.6/50MG TABLET NG SCH (08:45)
[2016-09-21] MEDS: DIPHENHYDRAMINE 50MG/ML VIAL IV PRN ×2 (10:18→21:14)
[2016-09-21] MEDS: ACETAMINOPHEN 325MG TABLET PEG PRN (13:59)
[2016-09-21] MEDS: FAMOTIDINE 20MG TABLET PO SCH (21:19)
[2016-09-22] VITALS (11 sets, daily range): BP systolic 113–149; BP diastolic 50–102
[2016-09-22] MEDS: IPRATROPIUM/ALBUTEROL 0.5-3(2.5)MG/3ML NEB HHN SCH ×6 (00:29→20:06)
[2016-09-22] MEDS: MORPHINE SULFATE 2 MG/ML CPJ (NOT FOR IM USE) IV PRN ×5 (02:03→21:02)
[2016-09-22] MEDS: DIPHENHYDRAMINE 50MG/ML VIAL IV PRN ×2 (05:07→21:37)
[2016-09-22] MEDS: THEOPHYLLINE ANHYDROUS 80 MG/15 ML 120ML PO SCH ×3 (06:17→21:02)
[2016-09-22] MEDS: DEXAMETHASONE 4MG TABLET PO SCH ×2 (09:22→21:02)
[2016-09-22] MEDS: SENNOSIDES/DOCUSATE SOD 8.6/50MG TABLET NG SCH (09:22)
[2016-09-22] MEDS: QUETIAPINE FUMARATE 50MG TABLET PO SCH ×2 (09:22→21:02)
[2016-09-22] MEDS: FUROSEMIDE 20MG/2ML VIAL IV SCH (09:22)
[2016-09-22] MEDS: ENOXAPARIN 40MG/0.4ML SYR SUBCUT SCH ×2 (09:23→21:02)
[2016-09-22] MEDS ORDERED: SIMETHICONE 40 MG/0.6 ML 30ML ONE (11:07)
[2016-09-22] MEDS ORDERED: SODIUM CHLORIDE 0.9% 10ML VIAL ONE (11:07)
[2016-09-22] MEDS: FAMOTIDINE 20MG TABLET PO SCH (21:02)
[2016-09-23] VITALS (13 sets, daily range): BP systolic 130–162; BP diastolic 56–96
[2016-09-23] MEDS: IPRATROPIUM/ALBUTEROL 0.5-3(2.5)MG/3ML NEB HHN SCH ×6 (00:15→20:40)
[2016-09-23] MEDS: MORPHINE SULFATE 2 MG/ML CPJ (NOT FOR IM USE) IV PRN ×4 (01:42→22:42)
[2016-09-23] MEDS: THEOPHYLLINE ANHYDROUS 80 MG/15 ML 120ML PO SCH ×2 (05:58→14:30)
[2016-09-23] MEDS: QUETIAPINE FUMARATE 50MG TABLET PO SCH ×2 (10:00→22:30)
[2016-09-23] MEDS: FUROSEMIDE 20MG/2ML VIAL IV SCH (10:00)
[2016-09-23] MEDS: SENNOSIDES/DOCUSATE SOD 8.6/50MG TABLET NG SCH (10:00)
[2016-09-23] MEDS: ENOXAPARIN 40MG/0.4ML SYR SUBCUT SCH ×2 (10:00→22:29)
[2016-09-23] MEDS ORDERED: SORBITOL 70% SOLN 30ML PO NR (12:15)
[2016-09-23] MEDS: LACTULOSE 20G/30ML UDC PO PRN (14:30)
[2016-09-23] MEDS ORDERED: SORBITOL 70% SOLN 30ML PO PRN (16:15)
[2016-09-23] MEDS: FAMOTIDINE 20MG TABLET PO SCH (22:30)
[2016-09-23] MEDS: DIPHENHYDRAMINE 50MG/ML VIAL IV PRN (22:30)
[2016-09-23] MEDS: ACETAMINOPHEN 650MG/20.3ML UDC PO PRN (22:30)
[2016-09-24] VITALS (12 sets, daily range): BP systolic 81–161; BP diastolic 21–97
[2016-09-24] MEDS: THEOPHYLLINE ANHYDROUS 80 MG/15 ML 120ML PO SCH ×4 (01:13→22:53)
[2016-09-24] MEDS: MORPHINE SULFATE 2 MG/ML CPJ (NOT FOR IM USE) IV PRN ×4 (03:33→21:29)
[2016-09-24] MEDS: ACETAMINOPHEN 650MG/20.3ML UDC PO PRN ×3 (04:20→21:23)
[2016-09-24 07:02] LABS: BASOPHILS % 0.6 % (0.0-2.0); EOSINOPHILS % 0.5 % (0.0-5.0); HEMATOCRIT. 53.5 % (42.0-52.0); LYMPHOCYTES % 15.4 % (20.0-50.0); MEAN CORPUSCULAR HEMOGLOBIN 25.9 pg (28.0-32.0); MEAN CORPUSCULAR HGB CONC 31.7 g/dL (31.0-37.0); MEAN CORPUSCULAR VOLUME 81.6 fL (80.0-94.0); MEAN PLATELET VOLUME 11.9 fl (7.4-10.4); MONOCYTES % 5.2 % (2.0-8.0); NEUTROPHILS % 78.3 % (40.0-76.0); PLATELET 125 x1000/uL (130-400); RED BLOOD CELL COUNT 6.56 mill/uL (4.7-6.1); RED CELL DISTRIBUTION WIDTH 18.1 % (11.6-14.6); WHITE BLOOD COUNT 15.6 x1000/uL (4.5-11.0)
[2016-09-24] MEDS: IPRATROPIUM/ALBUTEROL 0.5-3(2.5)MG/3ML NEB HHN SCH ×4 (07:49→21:36)
[2016-09-24 07:54] LABS: ALANINE AMINOTRANSFERASE 71 IU/L (13-61); ALBUMIN 2.9 g/dL (3.4-5.0); ANION GAP 9; CARBON DIOXIDE 36 mEq/L (21-32); CHLORIDE 98 mEq/L (98-107); INDEX HEMOLYSI 2 (1-3); INDEX ICTERIC 1 (1-4); INDEX LIPEMIC 1 (1-3); UREA NITROGEN BLOOD 30 mg/dL (7-21); eGFR > 60 mL/min (>60)
[2016-09-24] MEDS: FUROSEMIDE 20MG/2ML VIAL IV SCH (08:24)
[2016-09-24] MEDS: SENNOSIDES/DOCUSATE SOD 8.6/50MG TABLET NG SCH (08:24)
[2016-09-24] MEDS: QUETIAPINE FUMARATE 50MG TABLET PO SCH ×2 (08:24→21:23)
[2016-09-24] MEDS: ENOXAPARIN 40MG/0.4ML SYR SUBCUT SCH ×2 (08:24→21:23)
[2016-09-24 09:06] LABS: ALPHA-1 ANTI-TRYPSIN 177 mg/dL (90-200)
[2016-09-24 10:17] LABS: ACTIN (SMOOTH MUSCLE) ANTIBODY 21 Units (0-19)
[2016-09-24] MEDS: DIPHENHYDRAMINE 50MG/ML VIAL IV PRN ×2 (10:51→21:24)
[2016-09-24 13:08] LABS: ANA IFA Negative (.); ANTI-MYELOPEROXIDASE AB < 9.0 U/mL (0.0-9.0); ANTI-PROTEINASE 3 ABS < 3.5 U/mL (0.0-3.5); DRVVT LA 48.6 sec (0.0-44.0); PTT-LA 40.7 sec (0.0-43.6)
[2016-09-24] MEDS ORDERED: SORBITOL 70% SOLN 30ML PO NR ×2 (13:45→18:00)
[2016-09-24] MEDS ORDERED: METOCLOPRAMIDE HCL 10MG/2ML VIAL IV NR (13:45)
[2016-09-24 14:23] LABS: ATYPICAL P-ANCA <1:20 titer (Neg:<1:20); CYTOPLASMIC C-ANCA <1:20 titer (Neg:<1:20); PERINUCLEAR P-ANCA <1:20 titer (Neg:<1:20)
[2016-09-24] MEDS: FAMOTIDINE 20MG TABLET PO SCH (21:23)
[2016-09-25] VITALS (16 sets, daily range): BP systolic 87–170; BP diastolic 35–120
[2016-09-25] MEDS: IPRATROPIUM/ALBUTEROL 0.5-3(2.5)MG/3ML NEB HHN SCH ×6 (00:36→21:10)
[2016-09-25] MEDS: ACETAMINOPHEN 650MG/20.3ML UDC PO PRN ×2 (05:26→13:55)
[2016-09-25] MEDS: MORPHINE SULFATE 2 MG/ML CPJ (NOT FOR IM USE) IV PRN ×3 (05:26→18:50)
[2016-09-25] MEDS: THEOPHYLLINE ANHYDROUS 80 MG/15 ML 120ML PO SCH (05:27)
[2016-09-25 07:07] LABS: DRVVT MIX LA 42.3 sec (0.0-44.0); LUPUS ANTICOAG INTERPRETATION Comment: (.)
[2016-09-25] MEDS: DIPHENHYDRAMINE 50MG/ML VIAL IV PRN ×2 (09:01→18:49)
[2016-09-25] MEDS: SENNOSIDES/DOCUSATE SOD 8.6/50MG TABLET NG SCH (09:01)
[2016-09-25] MEDS: ENOXAPARIN 40MG/0.4ML SYR SUBCUT SCH (09:01)
[2016-09-25] MEDS: FUROSEMIDE 20MG/2ML VIAL IV SCH (09:01)
[2016-09-25] MEDS: QUETIAPINE FUMARATE 50MG TABLET PO SCH ×2 (09:01→20:29)
[2016-09-25] MEDS: FAMOTIDINE 20MG TABLET PO SCH (20:29)
[2016-09-26] VITALS (12 sets, daily range): BP systolic 123–172; BP diastolic 43–104
[2016-09-26] MEDS: MORPHINE SULFATE 2 MG/ML CPJ (NOT FOR IM USE) IV PRN ×3 (00:16→17:52)
[2016-09-26] MEDS: IPRATROPIUM/ALBUTEROL 0.5-3(2.5)MG/3ML NEB HHN SCH ×6 (00:30→20:55)
[2016-09-26] MEDS: ACETAMINOPHEN 650MG/20.3ML UDC PO PRN ×2 (05:11→11:25)
[2016-09-26] MEDS: DIPHENHYDRAMINE 50MG/ML VIAL IV PRN ×3 (06:03→23:53)
[2016-09-26] MEDS: QUETIAPINE FUMARATE 50MG TABLET PO SCH ×2 (08:38→20:27)
[2016-09-26] MEDS: FUROSEMIDE 20MG/2ML VIAL IV SCH (08:38)
[2016-09-26] MEDS: SENNOSIDES/DOCUSATE SOD 8.6/50MG TABLET NG SCH (08:38)
[2016-09-26] MEDS: FAMOTIDINE 20MG TABLET PO SCH (20:27)
[2016-09-27] VITALS (12 sets, daily range): BP systolic 107–151; BP diastolic 49–130
[2016-09-27] MEDS: IPRATROPIUM/ALBUTEROL 0.5-3(2.5)MG/3ML NEB HHN SCH ×5 (00:09→20:19)
[2016-09-27] MEDS: MORPHINE SULFATE 2 MG/ML CPJ (NOT FOR IM USE) IV PRN ×3 (00:30→11:24)
[2016-09-27] MEDS: ACETAMINOPHEN 325MG TABLET PEG PRN (03:26)
[2016-09-27] MEDS: FUROSEMIDE 20MG/2ML VIAL IV SCH (08:25)
[2016-09-27] MEDS: SENNOSIDES/DOCUSATE SOD 8.6/50MG TABLET NG SCH (08:25)
[2016-09-27] MEDS: QUETIAPINE FUMARATE 50MG TABLET PO SCH ×2 (08:25→20:49)
[2016-09-27] MEDS: DIPHENHYDRAMINE 50MG/ML VIAL IV PRN ×2 (08:45→17:48)
[2016-09-27] MEDS: FAMOTIDINE 20MG TABLET PO SCH (20:49)
[2016-09-27] MEDS: ONDANSETRON HCL 4MG/2ML VIAL IV PRN (20:49)
[2016-09-28] VITALS (17 sets, daily range): BP systolic 105–172; BP diastolic 52–103
[2016-09-28] MEDS: DIPHENHYDRAMINE 50MG/ML VIAL IV PRN ×2 (00:47→09:26)
[2016-09-28] MEDS: IPRATROPIUM/ALBUTEROL 0.5-3(2.5)MG/3ML NEB HHN SCH ×4 (01:52→21:41)
[2016-09-28] MEDS: MORPHINE SULFATE 2 MG/ML CPJ (NOT FOR IM USE) IV PRN ×2 (05:58→18:38)
[2016-09-28] MEDS: LACTULOSE 20G/30ML UDC PO PRN (06:57)
[2016-09-28] MEDS: SENNOSIDES/DOCUSATE SOD 8.6/50MG TABLET NG SCH (08:58)
[2016-09-28] MEDS: FUROSEMIDE 20MG/2ML VIAL IV SCH (08:58)
[2016-09-28] MEDS: QUETIAPINE FUMARATE 50MG TABLET PO SCH ×2 (08:58→20:07)
[2016-09-28] MEDS: ACETAMINOPHEN 650MG/20.3ML UDC PO PRN (09:26)
[2016-09-28] MEDS: FAMOTIDINE 20MG TABLET PO SCH (20:07)
[2016-09-29] VITALS (18 sets, daily range): BP systolic 112–153; BP diastolic 46–87
[2016-09-29] MEDS: DIPHENHYDRAMINE 50MG/ML VIAL IV PRN (03:00)
[2016-09-29] MEDS: MORPHINE SULFATE 2 MG/ML CPJ (NOT FOR IM USE) IV PRN ×3 (03:00→20:10)
[2016-09-29] MEDS: IPRATROPIUM/ALBUTEROL 0.5-3(2.5)MG/3ML NEB HHN SCH ×4 (03:30→19:55)
[2016-09-29] MEDS: FUROSEMIDE 20MG/2ML VIAL IV SCH (08:40)
[2016-09-29] MEDS: SENNOSIDES/DOCUSATE SOD 8.6/50MG TABLET NG SCH (08:40)
[2016-09-29] MEDS: QUETIAPINE FUMARATE 50MG TABLET PO SCH (08:40)
[2016-09-29] MEDS ORDERED: CLONIDINE 0.1MG TABLET NG PRN (12:32)
[2016-09-29] MEDS ORDERED: GUAIFENESIN 200MG/10ML SUGAR FREE UDC NG PRN (12:33)
[2016-09-29] MEDS ORDERED: MAGNESIUM/ALUMINUM HYDROXIDE/SIMETHICONE 30ML UDC NG PRN (12:35)
[2016-09-29] MEDS: FAMOTIDINE 20MG TABLET NG SCH (20:08)
[2016-09-29] MEDS: QUETIAPINE FUMARATE 50MG TABLET NG SCH (20:09)
[2016-09-30] VITALS (21 sets, daily range): BP systolic 97–147; BP diastolic 13–131
[2016-09-30] MEDS: IPRATROPIUM/ALBUTEROL 0.5-3(2.5)MG/3ML NEB HHN SCH ×5 (01:53→21:04)
[2016-09-30] MEDS: DIPHENHYDRAMINE 50MG/ML VIAL IV PRN ×2 (02:16→10:24)
[2016-09-30] MEDS: MORPHINE SULFATE 2 MG/ML CPJ (NOT FOR IM USE) IV PRN ×3 (02:17→10:23)
[2016-09-30] MEDS: ACETYLCYSTEINE 100MG/ML 10% VIAL 4ML INH SCH ×2 (08:37→13:46)
[2016-09-30] MEDS: FUROSEMIDE 20MG/2ML VIAL IV SCH (09:33)
[2016-09-30] MEDS: SENNOSIDES/DOCUSATE SOD 8.6/50MG TABLET NG SCH (09:33)
[2016-09-30] MEDS: QUETIAPINE FUMARATE 50MG TABLET NG SCH ×2 (09:34→21:04)
[2016-09-30] MEDS ORDERED: GUAIFENESIN 200MG/10ML SUGAR FREE UDC PO PRN (11:45)
[2016-09-30] MEDS: FAMOTIDINE 20MG TABLET NG SCH (21:04)
[2016-10-01] VITALS (18 sets, daily range): BP systolic 111–158; BP diastolic 51–84
[2016-10-01] MEDS: IPRATROPIUM/ALBUTEROL 0.5-3(2.5)MG/3ML NEB HHN SCH ×3 (02:23→19:55)
[2016-10-01] MEDS: ACETYLCYSTEINE 100MG/ML 10% VIAL 4ML INH SCH (06:00)
[2016-10-01] MEDS: DIPHENHYDRAMINE 50MG/ML VIAL IV PRN (06:16)
[2016-10-01] MEDS: LACTULOSE 20G/30ML UDC NG PRN (06:37)
[2016-10-01] MEDS: SENNOSIDES/DOCUSATE SOD 8.6/50MG TABLET NG SCH (09:18)
[2016-10-01] MEDS: QUETIAPINE FUMARATE 50MG TABLET NG SCH ×2 (09:18→21:30)
[2016-10-01] MEDS: FUROSEMIDE 20MG/2ML VIAL IV SCH (09:19)
[2016-10-01] MEDS: FAMOTIDINE 20MG TABLET NG SCH (21:30)
[2016-10-02] VITALS (12 sets, daily range): BP systolic 111–151; BP diastolic 28–99
[2016-10-02] MEDS: IPRATROPIUM/ALBUTEROL 0.5-3(2.5)MG/3ML NEB HHN SCH ×4 (01:43→21:05)
[2016-10-02] MEDS: QUETIAPINE FUMARATE 50MG TABLET NG SCH ×2 (08:29→21:48)
[2016-10-02] MEDS: SENNOSIDES/DOCUSATE SOD 8.6/50MG TABLET NG SCH (08:29)
[2016-10-02] MEDS: FUROSEMIDE 20MG/2ML VIAL IV SCH (08:29)
[2016-10-02] MEDS: GUAIFENESIN 600MG ER TABLET PO SCH ×2 (10:00→21:48)
[2016-10-02] MEDS: LACTULOSE 20G/30ML UDC NG PRN (10:05)
[2016-10-02] MEDS: MORPHINE SULFATE 2 MG/ML CPJ (NOT FOR IM USE) IV PRN (10:16)
[2016-10-02] MEDS: FAMOTIDINE 20MG TABLET NG SCH (21:48)
[2016-10-03] VITALS (13 sets, daily range): BP systolic 106–140; BP diastolic 52–93
[2016-10-03] MEDS: IPRATROPIUM/ALBUTEROL 0.5-3(2.5)MG/3ML NEB HHN SCH ×4 (01:10→20:05)
[2016-10-03] MEDS: SENNOSIDES/DOCUSATE SOD 8.6/50MG TABLET NG SCH (08:32)
[2016-10-03] MEDS: FUROSEMIDE 20MG/2ML VIAL IV SCH (08:32)
[2016-10-03] MEDS: GUAIFENESIN 600MG ER TABLET PO SCH ×2 (08:32→21:32)
[2016-10-03] MEDS: QUETIAPINE FUMARATE 50MG TABLET NG SCH ×2 (08:32→21:31)
[2016-10-03] MEDS: FAMOTIDINE 20MG TABLET NG SCH (21:32)
[2016-10-04] VITALS (13 sets, daily range): BP systolic 111–154; BP diastolic 63–98
[2016-10-04] MEDS: IPRATROPIUM/ALBUTEROL 0.5-3(2.5)MG/3ML NEB HHN SCH ×4 (02:15→20:26)
[2016-10-04] MEDS: FUROSEMIDE 20MG/2ML VIAL IV SCH (09:00)
[2016-10-04] MEDS: SENNOSIDES/DOCUSATE SOD 8.6/50MG TABLET NG SCH (09:00)
[2016-10-04] MEDS: GUAIFENESIN 600MG ER TABLET PO SCH ×2 (09:00→21:17)
[2016-10-04] MEDS: QUETIAPINE FUMARATE 50MG TABLET NG SCH ×2 (09:00→21:15)
[2016-10-04 11:54] LABS: BASOPHILS % 0.6 % (0.0-2.0); EOSINOPHILS % 2.2 % (0.0-5.0); HEMATOCRIT. 46.1 % (42.0-52.0); HEMOGLOBIN. 14.8 g/dL (14.0-18.0); LYMPHOCYTES % 32.5 % (20.0-50.0); MEAN CORPUSCULAR HEMOGLOBIN 25.9 pg (28.0-32.0); MEAN CORPUSCULAR HGB CONC 32.2 g/dL (31.0-37.0); MEAN CORPUSCULAR VOLUME 80.5 fL (80.0-94.0); MEAN PLATELET VOLUME 10.3 fl (7.4-10.4); MONOCYTES % 8.3 % (2.0-8.0); NEUTROPHILS % 56.4 % (40.0-76.0); PLATELET 121 x1000/uL (130-400); RED BLOOD CELL COUNT 5.73 mill/uL (4.7-6.1); RED CELL DISTRIBUTION WIDTH 18.5 % (11.6-14.6); WHITE BLOOD COUNT 6.9 x1000/uL (4.5-11.0)
[2016-10-04 12:10] LABS: ANION GAP 10; CALCIUM 8.9 mg/dL (8.5-10.1); CHLORIDE 83 mEq/L (98-107); INDEX HEMOLYSI 2 (1-3); INDEX ICTERIC 1 (1-4); INDEX LIPEMIC 1 (1-3); UREA NITROGEN BLOOD 10 mg/dL (7-21); eGFR > 60 mL/min (>60)
[2016-10-04 12:52] LABS: CARBON DIOXIDE 40 mEq/L (21-32)
[2016-10-04] MEDS ORDERED: POTASSIUM CHLORIDE 20MEQ TABLET SR PO NR (13:00)
[2016-10-04] MEDS: FAMOTIDINE 20MG TABLET NG SCH (21:15)
[2016-10-05] VITALS (12 sets, daily range): BP systolic 118–163; BP diastolic 56–88
[2016-10-05] MEDS: IPRATROPIUM/ALBUTEROL 0.5-3(2.5)MG/3ML NEB HHN SCH ×3 (02:23→19:59)
[2016-10-05] MEDS: QUETIAPINE FUMARATE 50MG TABLET NG SCH ×2 (10:02→21:21)
[2016-10-05] MEDS: GUAIFENESIN 600MG ER TABLET PO SCH ×2 (10:02→21:20)
[2016-10-05] MEDS: BISACODYL 5MG TABLET PO PRN (10:02)
[2016-10-05] MEDS: SENNOSIDES/DOCUSATE SOD 8.6/50MG TABLET NG SCH (10:02)
[2016-10-05] MEDS: ACETAMINOPHEN 325MG TABLET PEG PRN ×2 (10:02→22:55)
[2016-10-05] MEDS: DIPHENHYDRAMINE 50MG/ML VIAL IV PRN ×2 (10:03→22:56)
[2016-10-05] MEDS: FUROSEMIDE 20MG/2ML VIAL IV SCH (10:03)
[2016-10-05] MEDS ORDERED: SODIUM CHLORIDE 0.9% 1,000 ML IV SCH (12:00)
[2016-10-05] MEDS: SODIUM CHLORIDE 0.9% 1,000 ML IV SCH (14:29)
[2016-10-05] MEDS: FAMOTIDINE 20MG TABLET NG SCH (21:21)
[2016-10-06] VITALS (11 sets, daily range): BP systolic 112–144; BP diastolic 51–83
[2016-10-06] MEDS: IPRATROPIUM/ALBUTEROL 0.5-3(2.5)MG/3ML NEB HHN SCH ×4 (01:11→20:30)
[2016-10-06] MEDS: SODIUM CHLORIDE 0.9% 1,000 ML IV SCH (06:42)
[2016-10-06 07:14] LABS: ANION GAP 12; CALCIUM 8.9 mg/dL (8.5-10.1); CARBON DIOXIDE 37 mEq/L (21-32); CHLORIDE 89 mEq/L (98-107); INDEX HEMOLYSI 1 (1-3); INDEX ICTERIC 1 (1-4); INDEX LIPEMIC 1 (1-3); UREA NITROGEN BLOOD 8 mg/dL (7-21); eGFR > 60 mL/min (>60)
[2016-10-06] MEDS: FUROSEMIDE 20MG/2ML VIAL IV SCH (08:42)
[2016-10-06] MEDS: QUETIAPINE FUMARATE 50MG TABLET NG SCH ×2 (08:42→21:19)
[2016-10-06] MEDS: DIPHENHYDRAMINE 50MG/ML VIAL IV PRN ×2 (08:42→23:21)
[2016-10-06] MEDS: GUAIFENESIN 600MG ER TABLET PO SCH ×2 (08:42→21:19)
[2016-10-06] MEDS: SENNOSIDES/DOCUSATE SOD 8.6/50MG TABLET NG SCH (08:43)
[2016-10-06] MEDS: ACETAMINOPHEN 325MG TABLET PEG PRN (11:50)
[2016-10-06] MEDS ORDERED: POTASSIUM CHLORIDE 20 MEQ/PACKET PO NR (13:15)
[2016-10-06] MEDS: HYDROCODONE/APAP 7.5/325MG 1 TAB TABLET PO PRN ×2 (17:06→23:20)
[2016-10-06] MEDS: FAMOTIDINE 20MG TABLET NG SCH (21:19)
[2016-10-07] VITALS (12 sets, daily range): BP systolic 108–150; BP diastolic 62–90
[2016-10-07] MEDS: IPRATROPIUM/ALBUTEROL 0.5-3(2.5)MG/3ML NEB HHN SCH ×4 (01:56→21:11)
[2016-10-07] MEDS: SODIUM CHLORIDE 0.9% 1,000 ML IV SCH (04:50)
[2016-10-07] MEDS: DIPHENHYDRAMINE 50MG/ML VIAL IV PRN ×2 (04:50→16:37)
[2016-10-07] MEDS: GUAIFENESIN 600MG ER TABLET PO SCH ×2 (08:22→21:51)
[2016-10-07] MEDS: HYDROCODONE/APAP 7.5/325MG 1 TAB TABLET PO PRN ×2 (08:23→19:44)
[2016-10-07] MEDS: SENNOSIDES/DOCUSATE SOD 8.6/50MG TABLET NG SCH (08:25)
[2016-10-07] MEDS: FUROSEMIDE 20MG/2ML VIAL IV SCH (08:25)
[2016-10-07] MEDS: QUETIAPINE FUMARATE 50MG TABLET NG SCH ×2 (08:25→21:52)
[2016-10-07] MEDS: POTASSIUM CHLORIDE 20MEQ TABLET SR PO SCH (16:21)
[2016-10-07] MEDS: FAMOTIDINE 20MG TABLET NG SCH (21:52)
[2016-10-08] VITALS (12 sets, daily range): BP systolic 108–154; BP diastolic 50–84
[2016-10-08] MEDS: IPRATROPIUM/ALBUTEROL 0.5-3(2.5)MG/3ML NEB HHN SCH ×4 (04:29→21:19)
[2016-10-08] MEDS: HYDROCODONE/APAP 7.5/325MG 1 TAB TABLET PO PRN ×3 (05:21→21:20)
[2016-10-08 06:37] LABS: BASOPHILS % 0.2 % (0.0-2.0); EOSINOPHILS % 1.3 % (0.0-5.0); HEMATOCRIT. 40.1 % (42.0-52.0); HEMOGLOBIN. 12.6 g/dL (14.0-18.0); LYMPHOCYTES % 21.5 % (20.0-50.0); MEAN CORPUSCULAR HEMOGLOBIN 25.6 pg (28.0-32.0); MEAN CORPUSCULAR HGB CONC 31.5 g/dL (31.0-37.0); MEAN CORPUSCULAR VOLUME 81.4 fL (80.0-94.0); MEAN PLATELET VOLUME 9.8 fl (7.4-10.4); MONOCYTES % 10.4 % (2.0-8.0); NEUTROPHILS % 66.6 % (40.0-76.0); PLATELET 143 x1000/uL (130-400); RED BLOOD CELL COUNT 4.93 mill/uL (4.7-6.1); RED CELL DISTRIBUTION WIDTH 18.9 % (11.6-14.6); WHITE BLOOD COUNT 8.2 x1000/uL (4.5-11.0)
[2016-10-08 06:47] LABS: ALANINE AMINOTRANSFERASE 22 IU/L (13-61); ANION GAP 9; CALCIUM 8.5 mg/dL (8.5-10.1); CARBON DIOXIDE 36 mEq/L (21-32); CHLORIDE 96 mEq/L (98-107); INDEX HEMOLYSI 1 (1-3); INDEX ICTERIC 1 (1-4); INDEX LIPEMIC 1 (1-3); MAGNESIUM 1.8 mg/dL (1.8-2.4); UREA NITROGEN BLOOD 7 mg/dL (7-21); eGFR > 60 mL/min (>60)
[2016-10-08] MEDS: POTASSIUM CHLORIDE 20MEQ TABLET SR PO SCH (09:20)
[2016-10-08] MEDS: QUETIAPINE FUMARATE 50MG TABLET NG SCH ×2 (09:20→21:08)
[2016-10-08] MEDS: SENNOSIDES/DOCUSATE SOD 8.6/50MG TABLET NG SCH (09:20)
[2016-10-08] MEDS: GUAIFENESIN 600MG ER TABLET PO SCH ×2 (09:20→21:08)
[2016-10-08] MEDS: FUROSEMIDE 20MG/2ML VIAL IV SCH (09:20)
[2016-10-08] MEDS: FAMOTIDINE 20MG TABLET NG SCH (21:07)
[2016-10-09] VITALS (13 sets, daily range): BP systolic 107–153; BP diastolic 54–99
[2016-10-09] MEDS: IPRATROPIUM/ALBUTEROL 0.5-3(2.5)MG/3ML NEB HHN SCH ×4 (02:26→19:45)
[2016-10-09] MEDS: DOCUSATE SODIUM SUGAR FREE 100MG/10ML UDC NG PRN (05:50)
[2016-10-09] MEDS: SENNOSIDES/DOCUSATE SOD 8.6/50MG TABLET NG SCH (09:04)
[2016-10-09] MEDS: QUETIAPINE FUMARATE 50MG TABLET NG SCH ×2 (09:04→20:38)
[2016-10-09] MEDS: POTASSIUM CHLORIDE 20MEQ TABLET SR PO SCH (09:04)
[2016-10-09] MEDS: FUROSEMIDE 20MG/2ML VIAL IV SCH (09:04)
[2016-10-09] MEDS: HYDROCODONE/APAP 7.5/325MG 1 TAB TABLET PO PRN ×2 (09:05→16:56)
[2016-10-09] MEDS: GUAIFENESIN 600MG ER TABLET PO SCH ×2 (09:05→20:38)
[2016-10-09] MEDS: LACTULOSE 20G/30ML UDC NG PRN (09:05)
[2016-10-09] MEDS: ACETYLCYSTEINE 100MG/ML 10% VIAL 4ML INH SCH (14:00)
[2016-10-09] MEDS: DIPHENHYDRAMINE 50MG/ML VIAL IV PRN (15:32)
[2016-10-09] MEDS: FAMOTIDINE 20MG TABLET NG SCH (20:38)
[2016-10-10] VITALS (12 sets, daily range): BP systolic 103–139; BP diastolic 61–84
[2016-10-10] MEDS: IPRATROPIUM/ALBUTEROL 0.5-3(2.5)MG/3ML NEB HHN SCH ×4 (01:58→20:12)
[2016-10-10] MEDS: FUROSEMIDE 20MG/2ML VIAL IV SCH (09:00)
[2016-10-10] MEDS: SENNOSIDES/DOCUSATE SOD 8.6/50MG TABLET NG SCH (09:00)
[2016-10-10] MEDS: GUAIFENESIN 600MG ER TABLET PO SCH ×2 (09:00→21:03)
[2016-10-10] MEDS: QUETIAPINE FUMARATE 50MG TABLET NG SCH (09:01)
[2016-10-10] MEDS: POTASSIUM CHLORIDE 20MEQ TABLET SR PO SCH (09:01)
[2016-10-10] MEDS: BISACODYL 5MG TABLET PO PRN (09:22)
[2016-10-10] MEDS: HYDROCODONE/APAP 7.5/325MG 1 TAB TABLET PO PRN ×2 (09:22→21:06)
[2016-10-10] MEDS: DIPHENHYDRAMINE 50MG/ML VIAL IV PRN ×2 (15:18→23:53)
[2016-10-10] MEDS: FAMOTIDINE 20MG TABLET NG SCH (21:03)
[2016-10-11] VITALS (10 sets, daily range): BP systolic 108–145; BP diastolic 53–81
[2016-10-11] MEDS: ACETYLCYSTEINE 100MG/ML 10% VIAL 4ML INH SCH ×2 (01:50→09:45)
[2016-10-11] MEDS: IPRATROPIUM/ALBUTEROL 0.5-3(2.5)MG/3ML NEB HHN SCH ×3 (01:51→20:31)
[2016-10-11] MEDS: HYDROCODONE/APAP 7.5/325MG 1 TAB TABLET PO PRN ×3 (05:50→22:35)
[2016-10-11] MEDS: FUROSEMIDE 20MG/2ML VIAL IV SCH (08:32)
[2016-10-11] MEDS: GUAIFENESIN 600MG ER TABLET PO SCH ×2 (08:32→21:10)
[2016-10-11] MEDS: POTASSIUM CHLORIDE 20MEQ TABLET SR PO SCH (08:32)
[2016-10-11] MEDS: SENNOSIDES/DOCUSATE SOD 8.6/50MG TABLET NG SCH (08:32)
[2016-10-11] MEDS: DIPHENHYDRAMINE 50MG/ML VIAL IV PRN ×2 (11:28→17:52)
[2016-10-11] MEDS: FAMOTIDINE 20MG TABLET NG SCH (21:10)
[2016-10-12] VITALS (12 sets, daily range): BP systolic 101–144; BP diastolic 38–84
[2016-10-12] MEDS: ACETYLCYSTEINE 100MG/ML 10% VIAL 4ML INH SCH ×3 (00:21→23:55)
[2016-10-12] MEDS: IPRATROPIUM/ALBUTEROL 0.5-3(2.5)MG/3ML NEB HHN SCH ×5 (00:21→19:50)
[2016-10-12] MEDS: HYDROCODONE/APAP 7.5/325MG 1 TAB TABLET PO PRN ×2 (06:24→15:43)
[2016-10-12] MEDS: FUROSEMIDE 20MG/2ML VIAL IV SCH (08:53)
[2016-10-12] MEDS: GUAIFENESIN 600MG ER TABLET PO SCH ×2 (08:54→21:01)
[2016-10-12] MEDS: POTASSIUM CHLORIDE 20MEQ TABLET SR PO SCH (08:54)
[2016-10-12] MEDS: SENNOSIDES/DOCUSATE SOD 8.6/50MG TABLET NG SCH (08:54)
[2016-10-12] MEDS: DIPHENHYDRAMINE 50MG/ML VIAL IV PRN (11:42)
[2016-10-12] MEDS: FAMOTIDINE 20MG TABLET NG SCH (21:01)
[2016-10-12] MEDS ORDERED: ACETYLCYSTEINE 200MG/ML 20% VIAL 4ML INH SCH (22:00)
[2016-10-13] VITALS (12 sets, daily range): BP systolic 103–168; BP diastolic 73–88
[2016-10-13] MEDS: HYDROCODONE/APAP 7.5/325MG 1 TAB TABLET PO PRN ×3 (00:09→21:03)
[2016-10-13] MEDS: IPRATROPIUM/ALBUTEROL 0.5-3(2.5)MG/3ML NEB HHN SCH ×4 (01:50→20:00)
[2016-10-13] MEDS: DOCUSATE SODIUM SUGAR FREE 100MG/10ML UDC NG PRN (08:21)
[2016-10-13] MEDS: GUAIFENESIN 600MG ER TABLET PO SCH ×2 (08:21→21:02)
[2016-10-13] MEDS: POTASSIUM CHLORIDE 20MEQ TABLET SR PO SCH (08:21)
[2016-10-13] MEDS: SENNOSIDES/DOCUSATE SOD 8.6/50MG TABLET NG SCH (08:21)
[2016-10-13] MEDS: ALPRAZOLAM 0.5 MG TABLET PO PRN (12:56)
[2016-10-13] MEDS: FAMOTIDINE 20MG TABLET NG SCH (21:02)
[2016-10-13] MEDS: DIPHENHYDRAMINE 50MG/ML VIAL IV PRN (21:12)
[2016-10-14] VITALS (12 sets, daily range): BP systolic 94–158; BP diastolic 49–90
[2016-10-14] MEDS: IPRATROPIUM/ALBUTEROL 0.5-3(2.5)MG/3ML NEB HHN SCH ×4 (00:55→19:36)
[2016-10-14] MEDS: SENNOSIDES/DOCUSATE SOD 8.6/50MG TABLET NG SCH (08:33)
[2016-10-14] MEDS: POTASSIUM CHLORIDE 20MEQ TABLET SR PO SCH (08:33)
[2016-10-14] MEDS: GUAIFENESIN 600MG ER TABLET PO SCH ×2 (08:33→20:29)
[2016-10-14] MEDS: HYDROCODONE/APAP 7.5/325MG 1 TAB TABLET PO PRN ×3 (08:34→22:12)
[2016-10-14] MEDS: ACETAMINOPHEN 650MG/20.3ML UDC NG PRN (14:28)
[2016-10-14] MEDS: FAMOTIDINE 20MG TABLET NG SCH (20:29)
[2016-10-14] MEDS: DIPHENHYDRAMINE 50MG/ML VIAL IV PRN (22:16)
[2016-10-15] VITALS (12 sets, daily range): BP systolic 103–163; BP diastolic 72–119
[2016-10-15] MEDS: IPRATROPIUM/ALBUTEROL 0.5-3(2.5)MG/3ML NEB HHN SCH ×4 (00:58→20:17)
[2016-10-15] MEDS: HYDROCODONE/APAP 7.5/325MG 1 TAB TABLET PO PRN ×2 (05:54→21:19)
[2016-10-15] MEDS: DIPHENHYDRAMINE 50MG/ML VIAL IV PRN ×2 (08:51→21:45)
[2016-10-15] MEDS: GUAIFENESIN 600MG ER TABLET PO SCH ×2 (08:51→21:18)
[2016-10-15] MEDS: POTASSIUM CHLORIDE 20MEQ TABLET SR PO SCH (08:51)
[2016-10-15] MEDS: FAMOTIDINE 20MG TABLET NG SCH (21:19)
[2016-10-16] VITALS (19 sets, daily range): BP systolic 54–159; BP diastolic 33–108
[2016-10-16] MEDS: IPRATROPIUM/ALBUTEROL 0.5-3(2.5)MG/3ML NEB HHN SCH ×4 (02:00→22:07)
[2016-10-16] MEDS: HYDROCODONE/APAP 7.5/325MG 1 TAB TABLET PO PRN ×2 (06:05→23:21)
[2016-10-16] MEDS: POTASSIUM CHLORIDE 20MEQ TABLET SR PO SCH (08:25)
[2016-10-16] MEDS: GUAIFENESIN 600MG ER TABLET PO SCH ×2 (08:25→20:28)
[2016-10-16] MEDS: ACETAMINOPHEN 650MG/20.3ML UDC NG PRN (11:37)
[2016-10-16] MEDS: FAMOTIDINE 20MG TABLET NG SCH (20:27)
[2016-10-16] MEDS: DIPHENHYDRAMINE 50MG/ML VIAL IV PRN (20:37)
[2016-10-16] MEDS ORDERED: ONDANSETRON HCL 4MG/2ML VIAL IV PRN (23:15)
[2016-10-16] MEDS: ALPRAZOLAM 0.5 MG TABLET PO PRN (23:21)
[2016-10-17] VITALS (13 sets, daily range): BP systolic 70–169; BP diastolic 37–145
[2016-10-17] MEDS: IPRATROPIUM/ALBUTEROL 0.5-3(2.5)MG/3ML NEB HHN SCH ×4 (03:29→20:09)
[2016-10-17] MEDS: POTASSIUM CHLORIDE 20MEQ TABLET SR PO SCH (08:29)
[2016-10-17] MEDS: GUAIFENESIN 600MG ER TABLET PO SCH ×2 (08:31→20:45)
[2016-10-17 18:24] LABS: CHLORIDE 94 mEq/L (98-107); INDEX HEMOLYSI 1 (1-3); INDEX ICTERIC 1 (1-4); INDEX LIPEMIC 1 (1-3)
[2016-10-17 18:31] LABS: ANION GAP 6; CALCIUM 8.7 mg/dL (8.5-10.1); UREA NITROGEN BLOOD 5 mg/dL (7-21); eGFR > 60 mL/min (>60)
[2016-10-17 18:37] LABS: CARBON DIOXIDE 44 mEq/L (21-32)
[2016-10-17] MEDS: DIPHENHYDRAMINE 50MG/ML VIAL IV PRN (22:06)
[2016-10-18] VITALS (13 sets, daily range): BP systolic 93–161; BP diastolic 50–100
[2016-10-18] MEDS: IPRATROPIUM/ALBUTEROL 0.5-3(2.5)MG/3ML NEB HHN SCH ×4 (00:15→20:12)
[2016-10-18] MEDS: GUAIFENESIN 600MG ER TABLET PO SCH ×2 (09:43→20:11)
[2016-10-18 09:59] LABS: BG BASE EXCESS 18.2 mmol/L (-2.0-2.0); BG CARBOXYHEMOGLOBIN 0.6 % (0.5-1.5); BG FRACTION INSPIRED OXYGEN 40; BG METHEMOGLOBIN 0.3 % (0.0-1.5); BG OXYGEN SATURATION 92.9 % (92.0-98.5); BG OXYHEMOGLOBIN 92.1 % (94.0-97.0); BG PCO2 78.4 mmHg (35.0-45.0); BG PH 7.396 (7.350-7.450); BG PO2 68.3 mmHg (75.0-100.0); BG SAMPLE SITE RIGHT RADIAL; BG TOTAL HEMOGLOBIN 12.8 g/dL (12.0-18.0); BG VENT MODE MASK - CPAP
[2016-10-18] MEDS: HYDROCODONE/APAP 7.5/325MG 1 TAB TABLET PO PRN (11:10)
[2016-10-18] MEDS: HYDROCODONE/ACETAMINOPHEN 5/325MG TABLET PO PRN (20:12)
[2016-10-19] VITALS (7 sets, daily range): BP systolic 115–142; BP diastolic 33–77
[2016-10-19] MEDS: IPRATROPIUM/ALBUTEROL 0.5-3(2.5)MG/3ML NEB HHN SCH ×4 (02:02→20:58)
[2016-10-19] MEDS: GUAIFENESIN 600MG ER TABLET PO SCH ×2 (08:43→20:15)
[2016-10-19] MEDS: HYDROCODONE/ACETAMINOPHEN 5/325MG TABLET PO PRN ×2 (13:03→20:15)
[2016-10-20] VITALS (11 sets, daily range): BP systolic 94–145; BP diastolic 46–81
[2016-10-20] MEDS: IPRATROPIUM/ALBUTEROL 0.5-3(2.5)MG/3ML NEB HHN SCH ×4 (01:10→21:09)
[2016-10-20] MEDS: HYDROCODONE/ACETAMINOPHEN 5/325MG TABLET PO PRN ×3 (03:02→23:38)
[2016-10-20] MEDS: GUAIFENESIN 600MG ER TABLET PO SCH ×2 (08:25→19:52)
[2016-10-20] MEDS: DOCUSATE SODIUM 250MG CAPSULE PO SCH (16:57)
[2016-10-21] VITALS (12 sets, daily range): BP systolic 102–151; BP diastolic 53–87
[2016-10-21] MEDS: IPRATROPIUM/ALBUTEROL 0.5-3(2.5)MG/3ML NEB HHN SCH ×4 (01:44→21:21)
[2016-10-21] MEDS: GUAIFENESIN 600MG ER TABLET PO SCH ×2 (09:12→20:12)
[2016-10-21] MEDS: DOCUSATE SODIUM 250MG CAPSULE PO SCH ×2 (09:12→17:22)
[2016-10-21 12:53] LABS: BG BASE EXCESS 7.4 mmol/L (-2.0-2.0); BG CARBOXYHEMOGLOBIN 0.6 % (0.5-1.5); BG DEOXYHEMOGLOBIN 9.5 % (0.0-5.0); BG FRACTION INSPIRED OXYGEN 21; BG HCO3 ACT 33.3 mmol/L (22.0-26.0); BG METHEMOGLOBIN 0.3 % (0.0-1.5); BG OXYGEN SATURATION 90.4 % (92.0-98.5); BG OXYHEMOGLOBIN 89.6 % (94.0-97.0); BG PCO2 52.2 mmHg (35.0-45.0); BG PH 7.423 (7.350-7.450); BG PO2 60.4 mmHg (75.0-100.0); BG SAMPLE SITE LEFT RADIAL; BG VENT MODE ROOM AIR
[2016-10-21] MEDS: HYDROCODONE/ACETAMINOPHEN 5/325MG TABLET PO PRN ×2 (17:24→22:41)
[2016-10-22] VITALS (16 sets, daily range): BP systolic 71–141; BP diastolic 43–83
[2016-10-22] MEDS: IPRATROPIUM/ALBUTEROL 0.5-3(2.5)MG/3ML NEB HHN SCH ×4 (02:08→22:06)
[2016-10-22] MEDS: GUAIFENESIN 600MG ER TABLET PO SCH ×2 (09:08→21:38)
[2016-10-22] MEDS: DOCUSATE SODIUM 250MG CAPSULE PO SCH ×2 (09:08→17:31)
[2016-10-22] MEDS: HYDROCODONE/ACETAMINOPHEN 5/325MG TABLET PO PRN (17:31)
[2016-10-23] VITALS (13 sets, daily range): BP systolic 99–148; BP diastolic 58–85
[2016-10-23] MEDS: HYDROCODONE/ACETAMINOPHEN 5/325MG TABLET PO PRN ×3 (00:49→21:14)
[2016-10-23] MEDS: IPRATROPIUM/ALBUTEROL 0.5-3(2.5)MG/3ML NEB HHN SCH ×3 (03:25→20:22)
[2016-10-23] MEDS: DOCUSATE SODIUM 250MG CAPSULE PO SCH ×2 (09:26→17:55)
[2016-10-23] MEDS: GUAIFENESIN 600MG ER TABLET PO SCH ×2 (09:34→21:09)
[2016-10-23 16:36] LABS: BG BASE EXCESS 3.7 mmol/L (-2.0-2.0); BG CARBOXYHEMOGLOBIN 0.3 % (0.5-1.5); BG DEOXYHEMOGLOBIN 4.6 % (0.0-5.0); BG FRACTION INSPIRED OXYGEN 21; BG HCO3 ACT 28.6 mmol/L (22.0-26.0); BG METHEMOGLOBIN 0.3 % (0.0-1.5); BG OXYGEN SATURATION 95.4 % (92.0-98.5); BG OXYHEMOGLOBIN 94.8 % (94.0-97.0); BG PCO2 44.4 mmHg (35.0-45.0); BG PH 7.427 (7.350-7.450); BG PO2 78.8 mmHg (75.0-100.0); BG SAMPLE SITE LEFT RADIAL; BG TOTAL HEMOGLOBIN 12.7 g/dL (12.0-18.0); BG VENT MODE ROOM AIR
[2016-10-24] VITALS (8 sets, daily range): BP systolic 101–142; BP diastolic 58–79
[2016-10-24] MEDS: IPRATROPIUM/ALBUTEROL 0.5-3(2.5)MG/3ML NEB HHN SCH ×2 (01:19→09:18)
[2016-10-24] MEDS: GUAIFENESIN 600MG ER TABLET PO SCH (09:53)
[2016-10-24] MEDS: DOCUSATE SODIUM 250MG CAPSULE PO SCH (09:53)
[2016-10-24] MEDS: HYDROCODONE/ACETAMINOPHEN 5/325MG TABLET PO PRN (10:01)
== END 2016-10-24 13:30 | disposition home or self-care (01) | DRG 4 ==
LOC: ER 10:10 → SUPCPDRO 15:23 → MICUSO 17:52 → 5EST 09-20 15:30
PROVIDERS: ADMIT Hospitalist; ATTEND Hospitalist
PROC: 5A09357 Assistance with Respiratory Ventilation, Less than 24 Consecutive Hours, Continuous Positive Airway Pressure (ICD-10-PCS; 2016-09-07)
PROC: 02HV33Z Insertion of Infusion Device into Superior Vena Cava, Percutaneous Approach (ICD-10-PCS; 2016-09-07)
PROC: B548ZZA Ultrasonography of Superior Vena Cava, Guidance (ICD-10-PCS; 2016-09-07)
PROC: 0BH17EZ Insertion of Endotracheal Airway into Trachea, Via Natural or Artificial Opening (ICD-10-PCS; 2016-09-07)
PROC: 5A1945Z Respiratory Ventilation, 24-96 Consecutive Hours (ICD-10-PCS; 2016-09-07)
PROC: 5A1955Z Respiratory Ventilation, Greater than 96 Consecutive Hours (ICD-10-PCS; principal; 2016-09-11)
PROC: 0B110F4 Bypass Trachea to Cutaneous with Tracheostomy Device, Open Approach (ICD-10-PCS; 2016-09-17)
PROC: 0GBG0ZZ Excision of Left Thyroid Gland Lobe, Open Approach (ICD-10-PCS; 2016-09-17)
PROC: 0DH63UZ Insertion of Feeding Device into Stomach, Percutaneous Approach (ICD-10-PCS; 2016-09-18)
DX: A41.9 Sepsis, unspecified organism (principal); I50.33 Acute on chronic diastolic (congestive) heart failure; E87.2 Acidosis; D68.62 Lupus anticoagulant syndrome; E46 Unspecified protein-calorie malnutrition; E87.1 Hypo-osmolality and hyponatremia; E66.2 Morbid (severe) obesity with alveolar hypoventilation; J96.02 Acute respiratory failure with hypercapnia; J96.01 Acute respiratory failure with hypoxia; I11.0 Hypertensive heart disease with heart failure; L03.90 Cellulitis, unspecified; E11.9 Type 2 diabetes mellitus without complications; E78.1 Pure hyperglyceridemia; G47.33 Obstructive sleep apnea (adult) (pediatric); F12.90 Cannabis use, unspecified, uncomplicated; F17.200 Nicotine dependence, unspecified, uncomplicated; F32.9 Major depressive disorder, single episode, unspecified; F41.9 Anxiety disorder, unspecified; K59.00 Constipation, unspecified; Z68.42 Body mass index [BMI] 45.0-49.9, adult; Z99.11 Dependence on respirator [ventilator] status; E78.5 Hyperlipidemia, unspecified; Z91.013 Allergy to seafood
CPT/HCPCS: 31500; 36415; 36556; 36569; 36600; 43753; 71010; 76937; 78580; 80048; 80053; 80061; 80198; 80202; 80305; 81003; 82103; 82375; 82805; 83520; 83735; 83880; 84443; 84478; 84484; 85025; 85027; 85379; 85610; 85613; 85730; 85732; 86256; 87040; 87070; 87086; 92523; 92610; 93005; 93306; 93970; 94002; 94003; 94620; 94640; 94660; 96365; 96367; 96375; 97110; 97116; 97163; 97166; 97530; 97535; 99291; A4216; A6261; C1725; C9113; J0360; J0690; J0696; J1100; J1200; J1650; J1940; J1956; J2250; J2270; J2405; J2704; J2765; J2920; J2930; J3010; J3370; J3480; J3490; J7030; J7050; J7060; J7608; J7620; J8540

== ENCOUNTER 2018-04-20 11:04 | Inpatient (IN) | payer MEDICAID ==
[~2018-04-20] VITALS: Ht 167.6 cm; Wt 156.5 kg
[2018-04-20] VITALS (11 sets, daily range): BP systolic 128–193; BP diastolic 37–114
[~2018-04-20 11:04] MED LIST: FURO40TA5 PO; METF500T6 PO
[2018-04-20] MEDS ORDERED: MAGNESIUM/ALUMINUM HYDROXIDE/SIMETHICONE 30ML UDC PO STA (11:32)
[2018-04-20] MEDS ORDERED: VISCOUS LIDOCAINE 2% 15 ML UDC PO STA (11:32)
[2018-04-20] MEDS ORDERED: FAMOTIDINE 20MG/2ML VIAL IV ONE (11:45)
[2018-04-20] MEDS ORDERED: SODIUM CHLORIDE 0.9% 1,000 ML IV ONE (11:45)
[2018-04-20] MEDS ORDERED: ONDANSETRON HCL 4MG/2ML INJ IV ONE (11:45)
[2018-04-20 12:58] LABS: HEMATOCRIT. 48.8 % (42.0-52.0); HEMOGLOBIN. 16.1 g/dL (14.0-18.0); MEAN CORPUSCULAR HEMOGLOBIN 31.5 pg (28.0-32.0); MEAN PLATELET VOLUME 11.4 fl (7.4-10.4); PLATELET 176 x1000/uL (130-400); RED BLOOD CELL COUNT 5.13 mill/uL (4.7-6.1); RED CELL DISTRIBUTION WIDTH 14.2 % (11.6-14.6)
[2018-04-20 13:06] LABS: CHLORIDE 96 mEq/L (98-107)
[2018-04-20 13:15] LABS: CLARITY URINE CLEAR (CLEAR); COLOR URINE YELLOW (YELLOW); KETONES URINE 4+ (NEGATIVE); LEUKOCYTE ESTERASE URINE NEGATIVE (NEGATIVE); NITRITE URINE NEGATIVE (NEGATIVE); OCCULT BLOOD URINE 2+ (NEGATIVE); PROTEIN URINE 2+ (NEGATIVE); SPECIFIC GRAVITY URINE 1.027 (1.005-1.030); UROBILINOGEN URINE 0.2 E.U./dL (0.2-1.0)
[2018-04-20 13:17] LABS: BETA HYDROXYBUTYRATE 9.9 mMol/L (0.0-0.3)
[2018-04-20] MEDS ORDERED: INSULIN REGULAR (DRIP) 100 UNITS in SODIUM CHLORIDE 0.9% 99 ML IV SCH (13:30)
[2018-04-20] MEDS ORDERED: INSULIN REGULAR (HUMULIN R) 300UNITS/3ML IV ONE (13:30)
[2018-04-20 13:37] LABS: PROTHROMBIN TIME 10.2 sec (9.1-11.1)
[2018-04-20 13:42] LABS: PLATELET ESTIMATE NORMAL
[2018-04-20] MEDS ORDERED: INSULIN REGULAR (DRIP) 100 UNITS in SODIUM CHLORIDE 0.9% 99 ML IV ONE (13:45)
[2018-04-20 13:54] LABS: *AMPHETAMINES SCREEN URINE NEGATIVE (NEGATIVE); *BARBITURATES SCREEN URINE NEGATIVE (NEGATIVE); *BENZODIAZEPINES SCREEN URINE NEGATIVE (NEGATIVE); *COCAINE SCREEN URINE NEGATIVE (NEGATIVE)
[2018-04-20 13:55] LABS: CANNABINOID URINE SCREEN NEGATIVE (NEGATIVE); METHADONE URINE SCREEN NEGATIVE (NEGATIVE); OPIATES URINE SCREEN NEGATIVE (NEGATIVE); PHENCYCLIDINE URINE SCREEN NEGATIVE (NEGATIVE)
[2018-04-20 13:58] LABS: BG CARBOXYHEMOGLOBIN 1.1 % (0.5-1.5); BG DEOXYHEMOGLOBIN 5.3 % (0.0-5.0); BG FRACTION INSPIRED OXYGEN 21; BG HCO3 ACT 7.8 mmol/L (22.0-26.0); BG METHEMOGLOBIN 0.3 % (0.0-1.5); BG OXYGEN SATURATION 94.6 % (92.0-98.5); BG OXYHEMOGLOBIN 93.3 % (94.0-97.0); BG PCO2 27.2 mmHg (35.0-45.0); BG PH 7.073 (7.350-7.450); BG PO2 89.1 mmHg (75.0-100.0); BG SAMPLE SITE RIGHT BRACHIAL; BG TOTAL HEMOGLOBIN 16.1 g/dL (12.0-18.0); BG VENT MODE ROOM AIR
[2018-04-20 14:39] LABS: PHOSPHORUS 2.7 mg/dL (2.5-4.9)
[2018-04-20] MEDS: CLONIDINE 0.1MG TABLET PO PRN ×2 (16:07→20:15)
[2018-04-20] MEDS: SODIUM CHLORIDE 0.45% 1,000 ML IV SCH ×2 (16:07→20:15)
[2018-04-20] MEDS ORDERED: PANTOPRAZOLE SODIUM 40 MG/VIAL IV NR (16:26)
[2018-04-20 17:01] LABS: CHLORIDE 101 mEq/L (98-107)
[2018-04-20] MEDS ORDERED: NA PHOS,M-B/NA PHOS,DI-BA ENEMA 118ML PR PRN (17:15)
[2018-04-20] MEDS ORDERED: LACTULOSE 20G/30ML UDC PO PRN (17:15)
[2018-04-20] MEDS ORDERED: BISACODYL 10MG SUPP PR PRN (17:15)
[2018-04-20] MEDS: ONDANSETRON HCL 4MG/2ML INJ IV PRN ×2 (17:42→22:15)
[2018-04-20] MEDS: MORPHINE SULFATE 4 MG/ML CPJ (NOT FOR IM USE) IV PRN ×2 (17:44→22:15)
[2018-04-20] MEDS: AMLODIPINE 5MG TABLET PO SCH (20:16)
[2018-04-20 20:28] LABS: CHLORIDE 103 mEq/L (98-107)
[2018-04-20 20:54] LABS: BG BASE EXCESS -21.3 mmol/L (-2.0-2.0); BG BILEVEL POS AIRWAY PRESSURE 15/5; BG CARBOXYHEMOGLOBIN 0.2 % (0.5-1.5); BG DEOXYHEMOGLOBIN 1.3 % (0.0-5.0); BG FRACTION INSPIRED OXYGEN 35; BG HCO3 ACT 6.9 mmol/L (22.0-26.0); BG METHEMOGLOBIN 1.3 % (0.0-1.5); BG OXYGEN SATURATION 98.7 % (92.0-98.5); BG OXYHEMOGLOBIN 97.2 % (94.0-97.0); BG PCO2 23.6 mmHg (35.0-45.0); BG PH 7.086 (7.350-7.450); BG PO2 174.9 mmHg (75.0-100.0); BG SAMPLE SITE LEFT RADIAL; BG VENT MODE MASK - BIPAP; BG VENT RATE 16 set
[2018-04-20] MEDS ORDERED: SODIUM BICARBONATE 8.4% 1 MEQ/ML 50ML SYR IV NR (21:30)
[2018-04-20] MEDS ORDERED: FUROSEMIDE 40MG/4ML VIAL IVP ONE (21:30)
[2018-04-20] MEDS ORDERED: HYDRALAZINE 20MG/ML VIAL IV PRN ×3 (21:30→21:45)
[2018-04-20] MEDS ORDERED: FUROSEMIDE 40MG/4ML VIAL IVP NR (21:30)
[2018-04-20] MEDS ORDERED: SODIUM BICARBONATE 8.4% 1 MEQ/ML 50ML SYR IV ONE (21:30)
[2018-04-20] MEDS ORDERED: POTASSIUM CHLORIDE INJ 40 MEQ in DEXT 5% WATER 500 ML IV ONE (21:30)
[2018-04-20] MEDS ORDERED: POTASSIUM CHLORIDE INJ 40 MEQ in DEXT 5% WATER 500 ML IV NR (21:32)
[2018-04-20] MEDS ORDERED: DEXTROSE 50% WATER 50ML SYRINGE IV PRN ×4 (23:15)
[2018-04-20] MEDS ORDERED: INSULIN REGULAR (DRIP) 100 UNITS in SODIUM CHLORIDE 0.9% 100 ML IV SCH (23:15)
[2018-04-20] MEDS: INSULIN REGULAR (DRIP) 100 UNITS in SODIUM CHLORIDE 0.9% 100 ML IV SCH (23:34)
[2018-04-21] VITALS (32 sets, daily range): BP systolic 92–186; BP diastolic 39–128
[2018-04-21] MEDS: BLOOD SUGAR DIAGNOSTIC STRIP TEST SCH ×23 (01:04→23:34)
[2018-04-21] MEDS: SODIUM CHL 0.9% + KCL 20MEQ/L 1,000 ML IV SCH ×3 (01:06→17:50)
[2018-04-21 01:32] LABS: CHLORIDE 103 mEq/L (98-107)
[2018-04-21] MEDS: MORPHINE SULFATE 4 MG/ML CPJ (NOT FOR IM USE) IV PRN (05:10)
[2018-04-21] MEDS: INSULIN REGULAR (DRIP) 100 UNITS in SODIUM CHLORIDE 0.9% 100 ML IV SCH ×4 (05:51→20:51)
[2018-04-21 06:36] LABS: CHLORIDE 104 mEq/L (98-107)
[2018-04-21 07:07] LABS: HEMATOCRIT. 51.7 % (42.0-52.0); HEMOGLOBIN. 17.5 g/dL (14.0-18.0); MEAN CORPUSCULAR HEMOGLOBIN 31.5 pg (28.0-32.0); MEAN CORPUSCULAR VOLUME 93.3 fL (80.0-94.0); MEAN PLATELET VOLUME 12.2 fl (7.4-10.4); PLATELET 188 x1000/uL (130-400); RED BLOOD CELL COUNT 5.54 mill/uL (4.7-6.1); RED CELL DISTRIBUTION WIDTH 14.4 % (11.6-14.6)
[2018-04-21 08:00] LABS: BG CARBOXYHEMOGLOBIN 0.5 % (0.5-1.5); BG DEOXYHEMOGLOBIN 3.2 % (0.0-5.0); BG FRACTION INSPIRED OXYGEN 32; BG HCO3 ACT 13.1 mmol/L (22.0-26.0); BG METHEMOGLOBIN 0.5 % (0.0-1.5); BG OXYGEN SATURATION 96.8 % (92.0-98.5); BG OXYHEMOGLOBIN 95.8 % (94.0-97.0); BG PCO2 32.1 mmHg (35.0-45.0); BG PH 7.228 (7.350-7.450); BG PO2 83.4 mmHg (75.0-100.0); BG SAMPLE SITE RIGHT RADIAL; BG TOTAL HEMOGLOBIN 18.9 g/dL (12.0-18.0); BG VENT MODE NASAL CANNULA
[2018-04-21] MEDS: AMLODIPINE 5MG TABLET PO SCH ×3 (08:13→20:43)
[2018-04-21] MEDS: PANTOPRAZOLE SODIUM 40 MG/VIAL IV SCH (08:42)
[2018-04-21] MEDS ORDERED: POTASSIUM CHLORIDE INJ 40 MEQ in SODIUM CHLORIDE 0.9% 500 ML IV NR (09:00)
[2018-04-21] MEDS ORDERED: POTASSIUM CHLORIDE INJ 40 MEQ in SODIUM CHLORIDE 0.9% 250 ML IV NR (09:00)
[2018-04-21] MEDS: LOSARTAN POTASSIUM 50 MG TABLET PO SCH ×2 (09:43→20:43)
[2018-04-21] MEDS: ENOXAPARIN 40MG/0.4ML SYR SUBCUT SCH ×2 (09:43→21:47)
[2018-04-21] MEDS: MAGNESIUM/ALUMINUM HYDROXIDE/SIMETHICONE 30ML UDC PO PRN (09:44)
[2018-04-21] MEDS: LORAZEPAM 2MG/ML CPJ IV PRN (09:44)
[2018-04-21 10:39] LABS: PHOSPHORUS 0.5 mg/dL (2.5-4.9)
[2018-04-21 12:19] LABS: PLATELET ESTIMATE NORMAL
[2018-04-21] MEDS ORDERED: IPRATROPIUM/ALBUTEROL 0.5-3(2.5)MG/3ML NEB HHN PRN (13:00)
[2018-04-21] MEDS ORDERED: SODIUM PHOS,M-BASIC-D-BASIC 20 MM in DEXT 5% WATER 243.3333 ML IV NR (13:00)
[2018-04-21 13:22] LABS: BG BASE EXCESS -13.2 mmol/L (-2.0-2.0); BG BILEVEL POS AIRWAY PRESSURE 15/5; BG CARBOXYHEMOGLOBIN 0.2 % (0.5-1.5); BG DEOXYHEMOGLOBIN 1.1 % (0.0-5.0); BG HCO3 ACT 12.4 mmol/L (22.0-26.0); BG METHEMOGLOBIN 0.6 % (0.0-1.5); BG OXYGEN SATURATION 98.9 % (92.0-98.5); BG OXYHEMOGLOBIN 98.1 % (94.0-97.0); BG PCO2 29.5 mmHg (35.0-45.0); BG PH 7.241 (7.350-7.450); BG PO2 142.8 mmHg (75.0-100.0); BG SAMPLE SITE LEFT RADIAL; BG TOTAL HEMOGLOBIN 18.7 g/dL (12.0-18.0); BG VENT MODE MASK - BIPAP; BG VENT RATE 16 set
[2018-04-21] MEDS ORDERED: SODIUM BICARBONATE 8.4% 1 MEQ/ML 50ML SYR IV NR (15:00)
[2018-04-21] MEDS: IPRATROPIUM/ALBUTEROL 0.5-3(2.5)MG/3ML NEB HHN SCH ×2 (16:25→20:04)
[2018-04-22] VITALS (24 sets, daily range): BP systolic 82–155; BP diastolic 36–78
[2018-04-22] MEDS: BLOOD SUGAR DIAGNOSTIC STRIP TEST SCH ×25 (00:51→23:48)
[2018-04-22] MEDS: SODIUM CHL 0.9% + KCL 20MEQ/L 1,000 ML IV SCH (01:19)
[2018-04-22] MEDS: IPRATROPIUM/ALBUTEROL 0.5-3(2.5)MG/3ML NEB HHN SCH ×4 (01:53→20:25)
[2018-04-22] MEDS: INSULIN REGULAR (DRIP) 100 UNITS in SODIUM CHLORIDE 0.9% 100 ML IV SCH ×3 (05:29→17:00)
[2018-04-22 06:23] LABS: BASOPHILS % 0.5 % (0.0-2.0); EOSINOPHILS % 0.1 % (0.0-5.0); HEMATOCRIT. 47.2 % (42.0-52.0); HEMOGLOBIN. 15.6 g/dL (14.0-18.0); LYMPHOCYTES % 9.5 % (20.0-50.0); MEAN CORPUSCULAR HEMOGLOBIN 30.8 pg (28.0-32.0); MEAN CORPUSCULAR VOLUME 92.9 fL (80.0-94.0); MEAN PLATELET VOLUME 12.6 fl (7.4-10.4); MONOCYTES % 7.8 % (2.0-8.0); NEUTROPHILS % 82.1 % (40.0-76.0); PLATELET 136 x1000/uL (130-400); RED BLOOD CELL COUNT 5.08 mill/uL (4.7-6.1); RED CELL DISTRIBUTION WIDTH 14.9 % (11.6-14.6)
[2018-04-22] MEDS: AMLODIPINE 5MG TABLET PO SCH ×2 (09:00→21:06)
[2018-04-22] MEDS ORDERED: POTASSIUM CHLORIDE INJ 40 MEQ in DEXT 5% WATER 250 ML IV NR (10:00)
[2018-04-22] MEDS ORDERED: [UNRECOGNIZED DRUG - OTHER] IV SCH (10:30)
[2018-04-22] MEDS: ENOXAPARIN 40MG/0.4ML SYR SUBCUT SCH (10:30)
[2018-04-22] MEDS: PANTOPRAZOLE SODIUM 40 MG/VIAL IV SCH (10:30)
[2018-04-22] MEDS ORDERED: SODIUM BICARBONATE IV SCH (10:30)
[2018-04-22] MEDS ORDERED: POTASSIUM CHLORIDE IV SCH (10:30)
[2018-04-22 11:16] LABS: PHOSPHORUS 0.5 mg/dL (2.5-4.9)
[2018-04-22] MEDS ORDERED: SODIUM CHLORIDE IV NR ×2 (12:30→16:00)
[2018-04-22] MEDS ORDERED: SODIUM PHOS M BASIC D BASIC IV NR ×2 (12:30→16:00)
[2018-04-22] MEDS ORDERED: LIDOCAINE HCL 1% 10 MG/ML 10ML VIAL ONE (13:02)
[2018-04-22] MEDS ORDERED: KCL 20MEQ/100ML PREMIX 100 ML IV NR (15:00)
[2018-04-22 16:47] LABS: PHOSPHORUS 2.8 mg/dL (2.5-4.9)
[2018-04-22 17:08] LABS: CLARITY URINE TURBID (CLEAR); COLOR URINE DARK YELLOW (YELLOW); KETONES URINE TRACE (NEGATIVE); LEUKOCYTE ESTERASE URINE 1+ (NEGATIVE); NITRITE URINE NEGATIVE (NEGATIVE); OCCULT BLOOD URINE 3+ (NEGATIVE); PROTEIN URINE 2+ (NEGATIVE); UROBILINOGEN URINE 0.2 E.U./dL (0.2-1.0)
[2018-04-22] MEDS: DEXT 5%/0.45% NACL 1000ML 1,000 ML IV SCH (20:19)
[2018-04-22 20:57] LABS: BETA HYDROXYBUTYRATE 1.1 mMol/L (0.0-0.3); PHOSPHORUS 3.7 mg/dL (2.5-4.9)
[2018-04-23] VITALS (34 sets, daily range): BP systolic 90–169; BP diastolic 37–98
[2018-04-23] MEDS: BLOOD SUGAR DIAGNOSTIC STRIP TEST SCH ×24 (00:50→23:55)
[2018-04-23] MEDS: IPRATROPIUM/ALBUTEROL 0.5-3(2.5)MG/3ML NEB HHN SCH ×4 (01:41→20:40)
[2018-04-23] MEDS: INSULIN REGULAR (DRIP) 100 UNITS in SODIUM CHLORIDE 0.9% 100 ML IV SCH ×3 (02:36→22:05)
[2018-04-23 05:36] LABS: BASOPHILS % 0.4 % (0.0-2.0); EOSINOPHILS % 0.4 % (0.0-5.0); HEMATOCRIT. 40.5 % (42.0-52.0); HEMOGLOBIN. 13.3 g/dL (14.0-18.0); MEAN CORPUSCULAR HEMOGLOBIN 30.9 pg (28.0-32.0); MEAN CORPUSCULAR VOLUME 93.9 fL (80.0-94.0); MEAN PLATELET VOLUME 11.6 fl (7.4-10.4); MONOCYTES % 7.3 % (2.0-8.0); NEUTROPHILS % 79.9 % (40.0-76.0); PLATELET 101 x1000/uL (130-400); RED BLOOD CELL COUNT 4.31 mill/uL (4.7-6.1); RED CELL DISTRIBUTION WIDTH 15.4 % (11.6-14.6)
[2018-04-23 05:47] LABS: CHLORIDE 110 mEq/L (98-107)
[2018-04-23] MEDS: DEXT 5%/0.45% NACL 1000ML 1,000 ML IV SCH ×2 (05:54→22:03)
[2018-04-23 06:05] LABS: PHOSPHORUS 3.1 mg/dL (2.5-4.9)
[2018-04-23 06:07] LABS: CREATINE KINASE 101 IU/L (39-308)
[2018-04-23] MEDS: PANTOPRAZOLE SODIUM 40 MG/VIAL IV SCH (08:52)
[2018-04-23] MEDS: LORAZEPAM 2MG/ML CPJ IV PRN (08:52)
[2018-04-23] MEDS ORDERED: LIDOCAINE HCL 1% 20ML VIAL (Pyxis) INJ ONE (09:21)
[2018-04-23 09:37] LABS: BG BASE EXCESS -10.9 mmol/L (-2.0-2.0); BG CARBOXYHEMOGLOBIN 1.2 % (0.5-1.5); BG DEOXYHEMOGLOBIN 10.7 % (0.0-5.0); BG FRACTION INSPIRED OXYGEN 32; BG HCO3 ACT 16.7 mmol/L (22.0-26.0); BG METHEMOGLOBIN 0.3 % (0.0-1.5); BG OXYGEN SATURATION 89.1 % (92.0-98.5); BG OXYHEMOGLOBIN 87.8 % (94.0-97.0); BG PCO2 43.6 mmHg (35.0-45.0); BG PH 7.202 (7.350-7.450); BG PO2 62.4 mmHg (75.0-100.0); BG SAMPLE SITE LEFT RADIAL; BG TOTAL HEMOGLOBIN 14.3 g/dL (12.0-18.0); BG VENT MODE NASAL CANNULA
[2018-04-23] MEDS: MORPHINE SULFATE 4 MG/ML CPJ (NOT FOR IM USE) IV PRN ×2 (09:42→19:56)
[2018-04-23] MEDS ORDERED: HEPARIN SODIUM 1,000 UNIT/1ML VIAL IV NR (12:00)
[2018-04-23] MEDS: ENOXAPARIN 40MG/0.4ML SYR SUBCUT SCH (16:03)
[2018-04-23] MEDS ORDERED: KCL 20MEQ/100ML PREMIX 100 ML IV SCH (16:45)
[2018-04-24] VITALS (58 sets, daily range): BP systolic 100–201; BP diastolic 48–107
[2018-04-24] MEDS: BLOOD SUGAR DIAGNOSTIC STRIP TEST SCH ×23 (01:12→23:00)
[2018-04-24] MEDS: IPRATROPIUM/ALBUTEROL 0.5-3(2.5)MG/3ML NEB HHN SCH ×4 (01:13→21:20)
[2018-04-24] MEDS: MORPHINE SULFATE 4 MG/ML CPJ (NOT FOR IM USE) IV PRN ×2 (04:44→22:03)
[2018-04-24 05:24] LABS: BASOPHILS % 0.5 % (0.0-2.0); EOSINOPHILS % 0.4 % (0.0-5.0); HEMATOCRIT. 42.7 % (42.0-52.0); HEMOGLOBIN. 14.1 g/dL (14.0-18.0); MEAN CORPUSCULAR HEMOGLOBIN 31.1 pg (28.0-32.0); MEAN CORPUSCULAR VOLUME 94.1 fL (80.0-94.0); MONOCYTES % 10.5 % (2.0-8.0); NEUTROPHILS % 71.6 % (40.0-76.0); PLATELET 95 x1000/uL (130-400); RED BLOOD CELL COUNT 4.54 mill/uL (4.7-6.1); RED CELL DISTRIBUTION WIDTH 15.2 % (11.6-14.6)
[2018-04-24 05:38] LABS: PHOSPHORUS 4.1 mg/dL (2.5-4.9)
[2018-04-24 07:15] LABS: BG BASE EXCESS -8.6 mmol/L (-2.0-2.0); BG CARBOXYHEMOGLOBIN 1.2 % (0.5-1.5); BG DEOXYHEMOGLOBIN 3.9 % (0.0-5.0); BG HCO3 ACT 17.5 mmol/L (22.0-26.0); BG METHEMOGLOBIN 0.3 % (0.0-1.5); BG OXYHEMOGLOBIN 94.6 % (94.0-97.0); BG PCO2 38.5 mmHg (35.0-45.0); BG PH 7.276 (7.350-7.450); BG PO2 80.7 mmHg (75.0-100.0); BG SAMPLE SITE RIGHT RADIAL; BG TOTAL HEMOGLOBIN 13.3 g/dL (12.0-18.0); BG VENT MODE NASAL CANNULA
[2018-04-24] MEDS: PANTOPRAZOLE SODIUM 40 MG/VIAL IV SCH (08:34)
[2018-04-24] MEDS: ENOXAPARIN 40MG/0.4ML SYR SUBCUT SCH (08:35)
[2018-04-24] MEDS: SODIUM CHLORIDE 0.45% 1,000 ML IV SCH (08:51)
[2018-04-24] MEDS: INSULIN REGULAR (DRIP) 100 UNITS in SODIUM CHLORIDE 0.9% 100 ML IV SCH ×2 (08:54→22:31)
[2018-04-24] MEDS ORDERED: KCL 20MEQ/100ML PREMIX 100 ML IV NR (09:00)
[2018-04-24] MEDS ORDERED: HEPARIN SODIUM 1,000 UNIT/1ML VIAL IV NR (12:45)
[2018-04-24] MEDS ORDERED: LIDOCAINE HCL/PF 1% 2ML VIAL ONE (13:25)
[2018-04-25] VITALS (47 sets, daily range): BP systolic 75–179; BP diastolic 32–118
[2018-04-25] MEDS: BLOOD SUGAR DIAGNOSTIC STRIP TEST SCH ×14 (01:00→21:00)
[2018-04-25] MEDS: IPRATROPIUM/ALBUTEROL 0.5-3(2.5)MG/3ML NEB HHN SCH ×4 (01:25→20:08)
[2018-04-25] MEDS: MAGNESIUM/ALUMINUM HYDROXIDE/SIMETHICONE 30ML UDC PO PRN (04:14)
[2018-04-25] MEDS ORDERED: KCL 20MEQ/100ML PREMIX 100 ML IV SCH (05:00)
[2018-04-25] MEDS: MORPHINE SULFATE 4 MG/ML CPJ (NOT FOR IM USE) IV PRN ×2 (06:25→11:23)
[2018-04-25 06:43] LABS: HEMATOCRIT. 36.6 % (42.0-52.0); HEMOGLOBIN. 12.3 g/dL (14.0-18.0); MEAN CORPUSCULAR HEMOGLOBIN 31.3 pg (28.0-32.0); MEAN CORPUSCULAR VOLUME 93.1 fL (80.0-94.0); MEAN PLATELET VOLUME 10.9 fl (7.4-10.4); PLATELET 104 x1000/uL (130-400); RED BLOOD CELL COUNT 3.93 mill/uL (4.7-6.1); RED CELL DISTRIBUTION WIDTH 14.9 % (11.6-14.6)
[2018-04-25] MEDS ORDERED: POTASSIUM CHLORIDE 20MEQ/PACKET PO SCH (07:45)
[2018-04-25] MEDS ORDERED: DEXTROSE 50% WATER 50ML SYRINGE IV PRN (07:45)
[2018-04-25] MEDS: SODIUM CHLORIDE 0.45% 1,000 ML IV SCH (08:26)
[2018-04-25] MEDS: PANTOPRAZOLE SODIUM 40 MG/VIAL IV SCH (08:32)
[2018-04-25] MEDS: INSULIN REGULAR (DRIP) 100 UNITS in SODIUM CHLORIDE 0.9% 100 ML IV SCH (09:25)
[2018-04-25] MEDS ORDERED: INSULIN GLARGINE UD 100 UNITS/ML SYR SUBCUT SCH (10:00)
[2018-04-25] MEDS: INSULIN LISPRO 100 UNITS/ML SUBCUT SCH ×3 (11:26→22:29)
[2018-04-25 12:55] LABS: PLATELET ESTIMATE SLIGHTLY DECREASED
[2018-04-25] MEDS: INSULIN GLARGINE UD 100 UNITS/ML SYR SUBCUT SCH (22:31)
[2018-04-26] VITALS (58 sets, daily range): BP systolic 86–187; BP diastolic 38–154
[2018-04-26] MEDS: MORPHINE SULFATE 4 MG/ML CPJ (NOT FOR IM USE) IV PRN ×3 (00:16→15:11)
[2018-04-26] MEDS: IPRATROPIUM/ALBUTEROL 0.5-3(2.5)MG/3ML NEB HHN SCH ×4 (01:48→20:44)
[2018-04-26 05:25] LABS: HEMATOCRIT. 42.2 % (42.0-52.0); HEMOGLOBIN. 13.5 g/dL (14.0-18.0); MEAN CORPUSCULAR HEMOGLOBIN 31.1 pg (28.0-32.0); MEAN CORPUSCULAR VOLUME 97.2 fL (80.0-94.0); MEAN PLATELET VOLUME 11.2 fl (7.4-10.4); PLATELET 114 x1000/uL (130-400); RED BLOOD CELL COUNT 4.34 mill/uL (4.7-6.1); RED CELL DISTRIBUTION WIDTH 15.2 % (11.6-14.6)
[2018-04-26 05:47] LABS: PHOSPHORUS 4.6 mg/dL (2.5-4.9)
[2018-04-26 05:55] LABS: CHLORIDE 93 mEq/L (98-107)
[2018-04-26] MEDS: BLOOD SUGAR DIAGNOSTIC STRIP TEST SCH ×5 (06:02→20:35)
[2018-04-26] MEDS: INSULIN LISPRO 100 UNITS/ML SUBCUT SCH ×5 (06:07→23:39)
[2018-04-26] MEDS: SODIUM CHLORIDE 0.45% 1,000 ML IV SCH (06:08)
[2018-04-26] MEDS: PANTOPRAZOLE SODIUM 40 MG/VIAL IV SCH (08:58)
[2018-04-26] MEDS: INSULIN GLARGINE UD 100 UNITS/ML SYR SUBCUT SCH ×2 (10:34→21:08)
[2018-04-26 16:21] LABS: PLATELET ESTIMATE SLIGHTLY DECREASED
[2018-04-26] MEDS ORDERED: INSULIN LISPRO 100 UNITS/ML SUBCUT SCH (18:15)
[2018-04-27] VITALS (12 sets, daily range): BP systolic 98–148; BP diastolic 44–81
[2018-04-27] MEDS: IPRATROPIUM/ALBUTEROL 0.5-3(2.5)MG/3ML NEB HHN SCH ×4 (02:00→21:28)
[2018-04-27] MEDS: MORPHINE SULFATE 4 MG/ML CPJ (NOT FOR IM USE) IV PRN (03:28)
[2018-04-27] MEDS: INSULIN LISPRO 100 UNITS/ML SUBCUT SCH ×8 (03:28→20:53)
[2018-04-27 06:38] LABS: HEMATOCRIT. 34.3 % (42.0-52.0); HEMOGLOBIN. 11.4 g/dL (14.0-18.0); MEAN CORPUSCULAR HEMOGLOBIN 31.3 pg (28.0-32.0); MEAN PLATELET VOLUME 10.2 fl (7.4-10.4); PLATELET 114 x1000/uL (130-400); RED BLOOD CELL COUNT 3.65 mill/uL (4.7-6.1); RED CELL DISTRIBUTION WIDTH 14.5 % (11.6-14.6)
[2018-04-27 06:59] LABS: CHLORIDE 96 mEq/L (98-107)
[2018-04-27 07:14] LABS: PHOSPHORUS 3.3 mg/dL (2.5-4.9)
[2018-04-27] MEDS: BLOOD SUGAR DIAGNOSTIC STRIP TEST SCH ×4 (08:11→20:51)
[2018-04-27] MEDS: PANTOPRAZOLE SODIUM 40 MG/VIAL IV SCH (08:47)
[2018-04-27] MEDS ORDERED: POTASSIUM CHLORIDE 20MEQ TABLET SR PO SCH (10:30)
[2018-04-27] MEDS: INSULIN GLARGINE UD 100 UNITS/ML SYR SUBCUT SCH ×2 (10:40→21:46)
[2018-04-27] MEDS ORDERED: INSULIN GLARGINE UD 100 UNITS/ML SYR SUBCUT SCH (13:00)
[2018-04-27 18:50] LABS: PLATELET ESTIMATE DECREASED
[2018-04-28] VITALS (10 sets, daily range): BP systolic 118–148; BP diastolic 63–82
[2018-04-28] MEDS: BLOOD SUGAR DIAGNOSTIC STRIP TEST SCH ×5 (00:10→16:37)
[2018-04-28] MEDS: INSULIN LISPRO 100 UNITS/ML SUBCUT SCH ×8 (00:19→17:19)
[2018-04-28] MEDS ORDERED: HYDRALAZINE 20MG/ML VIAL IV PRN (00:30)
[2018-04-28] MEDS: IPRATROPIUM/ALBUTEROL 0.5-3(2.5)MG/3ML NEB HHN SCH ×3 (00:58→13:00)
[2018-04-28 09:47] LABS: BASOPHILS % 0.4 % (0.0-2.0); EOSINOPHILS % 0.3 % (0.0-5.0); HEMATOCRIT. 39.4 % (42.0-52.0); HEMOGLOBIN. 13.3 g/dL (14.0-18.0); LYMPHOCYTES % 15.7 % (20.0-50.0); MEAN CORPUSCULAR HEMOGLOBIN 31.3 pg (28.0-32.0); MEAN CORPUSCULAR VOLUME 93.1 fL (80.0-94.0); MEAN PLATELET VOLUME 10.4 fl (7.4-10.4); MONOCYTES % 12.2 % (2.0-8.0); NEUTROPHILS % 71.4 % (40.0-76.0); PLATELET 190 x1000/uL (130-400); RED BLOOD CELL COUNT 4.23 mill/uL (4.7-6.1); RED CELL DISTRIBUTION WIDTH 14.3 % (11.6-14.6)
[2018-04-28] MEDS: INSULIN GLARGINE UD 100 UNITS/ML SYR SUBCUT SCH (10:43)
[2018-04-28 10:46] LABS: PHOSPHORUS 3.2 mg/dL (2.5-4.9)
[2018-04-28] MEDS ORDERED: MAGNESIUM SULFATE 2 GM in DEXTROSE 5% WATER 50 ML IV NR (13:00)
[2018-04-28] MEDS ORDERED: POTASSIUM CHLORIDE 20MEQ TABLET SR PO NR (14:00)
[2018-04-28] MEDS: MORPHINE SULFATE 4 MG/ML CPJ (NOT FOR IM USE) IV PRN (14:17)
== END 2018-04-28 20:07 | disposition home or self-care (01) | DRG 720 ==
LOC: ER 13:24 → EDBEDREQ 13:37 → ENRESERV 17:58 → MICUSO 18:13 → 5EST 04-21 15:12 → MICUSO 04-21 15:22 → 5EST 04-26 16:54
PROVIDERS: ADMIT Internal Medicine; ATTEND Internal Medicine
PROC: 5A09357 Assistance with Respiratory Ventilation, Less than 24 Consecutive Hours, Continuous Positive Airway Pressure (ICD-10-PCS; 2018-04-20)
PROC: 05HY33Z Insertion of Infusion Device into Upper Vein, Percutaneous Approach (ICD-10-PCS; principal; 2018-04-22)
PROC: 0JH63XZ Insertion of Tunneled Vascular Access Device into Chest Subcutaneous Tissue and Fascia, Percutaneous Approach (ICD-10-PCS; 2018-04-23)
PROC: 02HV33Z Insertion of Infusion Device into Superior Vena Cava, Percutaneous Approach (ICD-10-PCS; 2018-04-23)
PROC: B548ZZA Ultrasonography of Superior Vena Cava, Guidance (ICD-10-PCS; 2018-04-23)
PROC: 5A1D70Z Performance of Urinary Filtration, Intermittent, Less than 6 Hours Per Day (ICD-10-PCS; 2018-04-24)
PROC: 5A1D70Z Performance of Urinary Filtration, Intermittent, Less than 6 Hours Per Day (ICD-10-PCS; 2018-04-26)
PROC: 5A09357 Assistance with Respiratory Ventilation, Less than 24 Consecutive Hours, Continuous Positive Airway Pressure (ICD-10-PCS; 2018-04-28)
DX: A41.9 Sepsis, unspecified organism (principal); J96.20 Acute and chronic respiratory failure, unspecified whether with hypoxia or hypercapnia; N17.0 Acute kidney failure with tubular necrosis; Z93.0 Tracheostomy status; K85.90 Acute pancreatitis without necrosis or infection, unspecified; G93.41 Metabolic encephalopathy; E10.10 Type 1 diabetes mellitus with ketoacidosis without coma; I11.0 Hypertensive heart disease with heart failure; I50.42 Chronic combined systolic (congestive) and diastolic (congestive) heart failure; E87.8 Other disorders of electrolyte and fluid balance, not elsewhere classified; E66.2 Morbid (severe) obesity with alveolar hypoventilation; E83.39 Other disorders of phosphorus metabolism; E78.1 Pure hyperglyceridemia; E87.1 Hypo-osmolality and hyponatremia; Z68.43 Body mass index [BMI] 50.0-59.9, adult; E87.6 Hypokalemia; E44.1 Mild protein-calorie malnutrition; F17.210 Nicotine dependence, cigarettes, uncomplicated; F12.90 Cannabis use, unspecified, uncomplicated; K76.0 Fatty (change of) liver, not elsewhere classified; K21.9 Gastro-esophageal reflux disease without esophagitis; F32.9 Major depressive disorder, single episode, unspecified; F41.9 Anxiety disorder, unspecified; Z79.4 Long term (current) use of insulin; Z82.49 Family history of ischemic heart disease and other diseases of the circulatory system; Z91.19 Patient's noncompliance with other medical treatment and regimen; Z83.3 Family history of diabetes mellitus; Z90.49 Acquired absence of other specified parts of digestive tract; Z93.1 Gastrostomy status; Z91.013 Allergy to seafood; Z71.3 Dietary counseling and surveillance
CPT/HCPCS: 36415; 36569; 36600; 71045; 76705; 76770; 76937; 80048; 80053; 80305; 81003; 82010; 82375; 82550; 82805; 82962; 83036; 83690; 83735; 83880; 84100; 84478; 84484; 85025; 85610; 87040; 93005; 93306; 94640; 94660; 96361; 96365; 96375; 97116; 97163; 99291; A6261; C1725; C1752; C1769; C9113; J0360; J1644; J1650; J1815; J1940; J2060; J2270; J2405; J3475; J3480; J3490; J7030; J7050; J7060; J7620; A4315

== ENCOUNTER 2019-10-06 16:26 | Emergency (ER) | payer MEDICAID ==
[~2019-10-06] VITALS: Ht 162.6 cm; Wt 150.0 kg
[~2019-10-06 16:26] MED LIST changes: -METF500T6 PO
[2019-10-06 16:55] VITALS: BP 168/102
[2019-10-06 18:42] LABS: BASOPHILS % 0.5 % (0.0-2.0); EOSINOPHILS % 0.7 % (0.0-5.0); HEMATOCRIT. 44.4 % (42.0-52.0); HEMOGLOBIN. 14.9 g/dL (14.0-18.0); LYMPHOCYTES % 23.6 % (20.0-50.0); MEAN CORPUSCULAR HEMOGLOBIN 31.3 pg (28.0-32.0); MEAN CORPUSCULAR VOLUME 93.4 fL (80.0-94.0); MEAN PLATELET VOLUME 10.1 fl (7.4-10.4); MONOCYTES % 7.5 % (2.0-8.0); NEUTROPHILS % 67.7 % (40.0-76.0); PLATELET 175 x1000/uL (130-400); RED BLOOD CELL COUNT 4.75 mill/uL (4.7-6.1); RED CELL DISTRIBUTION WIDTH 15.2 % (11.6-14.6)
[2019-10-06 18:48] LABS: CHLORIDE 102 mEq/L (98-107)
[2019-10-06] MEDS ORDERED: FUROSEMIDE 40MG TABLET PO ONE (20:45)
[2019-10-06] MEDS ORDERED: POTASSIUM CHLORIDE 20MEQ TABLET SR PO ONE (20:45)
[2019-10-06 20:54] LABS: *AMPHETAMINES SCREEN URINE NEGATIVE (NEGATIVE)
[2019-10-06 20:55] LABS: *BARBITURATES SCREEN URINE NEGATIVE (NEGATIVE); *BENZODIAZEPINES SCREEN URINE NEGATIVE (NEGATIVE); *COCAINE SCREEN URINE NEGATIVE (NEGATIVE); METHADONE URINE SCREEN NEGATIVE (NEGATIVE)
[2019-10-06 20:56] LABS: CANNABINOID URINE SCREEN PRESUMTIVE POSITIVE (NEGATIVE); OPIATES URINE SCREEN NEGATIVE (NEGATIVE); PHENCYCLIDINE URINE SCREEN NEGATIVE (NEGATIVE)
== END 2019-10-06 21:19 | disposition home or self-care (01) ==
LOC: ER 16:26
DX: I11.0 Hypertensive heart disease with heart failure (principal); I50.9 Heart failure, unspecified; G47.33 Obstructive sleep apnea (adult) (pediatric); Z76.0 Encounter for issue of repeat prescription; E11.9 Type 2 diabetes mellitus without complications; Z90.49 Acquired absence of other specified parts of digestive tract
CPT/HCPCS: 36415; 71045; 80053; 80305; 83880; 84484; 85025; 93005; 99285

== ENCOUNTER 2019-11-19 11:54 | Inpatient (IN) | payer MEDICAID, OTHER ==
[~2019-11-19] VITALS: Ht 165.1 cm; Wt 157.9 kg
[2019-11-19 15:31] LABS: CHLORIDE 96 mEq/L (98-107)
[2019-11-19 15:36] LABS: BASOPHILS % 0.4 % (0.0-2.0); EOSINOPHILS % 0.3 % (0.0-5.0); HEMATOCRIT. 46.2 % (42.0-52.0); HEMOGLOBIN. 14.8 g/dL (14.0-18.0); MEAN CORPUSCULAR HEMOGLOBIN 29.6 pg (28.0-32.0); MEAN CORPUSCULAR VOLUME 92.8 fL (80.0-94.0); MEAN PLATELET VOLUME 10.8 fl (7.4-10.4); MONOCYTES % 8.3 % (2.0-8.0); PLATELET 170 x1000/uL (130-400); RED BLOOD CELL COUNT 4.98 mill/uL (4.7-6.1); RED CELL DISTRIBUTION WIDTH 15.2 % (11.6-14.6)
[2019-11-19 17:01] LABS: BG BASE EXCESS 7.3 mmol/L (-2.0-2.0); BG CARBOXYHEMOGLOBIN 2.9 % (0.5-1.5); BG DEOXYHEMOGLOBIN 3.2 % (0.0-5.0); BG FRACTION INSPIRED OXYGEN 32; BG HCO3 ACT 35.2 mmol/L (22.0-26.0); BG METHEMOGLOBIN 0.1 % (0.0-1.5); BG OXYGEN SATURATION 96.7 % (92.0-98.5); BG OXYHEMOGLOBIN 93.8 % (94.0-97.0); BG PCO2 62.8 mmHg (35.0-45.0); BG PH 7.366 (7.350-7.450); BG PO2 92.8 mmHg (75.0-100.0); BG SAMPLE SITE LEFT RADIAL; BG TOTAL HEMOGLOBIN 15.6 g/dL (12.0-18.0); BG VENT MODE NASAL CANNULA
[2019-11-19] MEDS ORDERED: ASPIRIN 81MG TABLET PO ONE (18:00)
[2019-11-19] MEDS ORDERED: FUROSEMIDE 40MG/4ML VIAL IV ONE (18:00)
[2019-11-19 18:15] LABS: CLARITY URINE CLOUDY (CLEAR); COLOR URINE YELLOW (YELLOW); KETONES URINE NEGATIVE (NEGATIVE); LEUKOCYTE ESTERASE URINE NEGATIVE (NEGATIVE); NITRITE URINE NEGATIVE (NEGATIVE); OCCULT BLOOD URINE NEGATIVE (NEGATIVE); PROTEIN URINE 1+ (NEGATIVE); SPECIFIC GRAVITY URINE 1.026 (1.005-1.030)
[2019-11-19] MEDS ORDERED: ENOXAPARIN 150MG/ML SYR SUBCUT ONE (18:30)
[2019-11-19] MEDS ORDERED: DIPHENHYDRAMINE 50MG/ML VIAL IV PRN (18:45)
[2019-11-19] MEDS ORDERED: CLONIDINE 0.1MG TABLET PO PRN (18:45)
[2019-11-19] MEDS ORDERED: ONDANSETRON HCL 4MG/2ML INJ IV PRN (18:45)
[2019-11-19 19:40] LABS: PHOSPHORUS 3.3 mg/dL (2.5-4.9)
[2019-11-19 20:36] LABS: BG BASE EXCESS 11.1 mmol/L (-2.0-2.0); BG BILEVEL POS AIRWAY PRESSURE 20/5; BG CARBOXYHEMOGLOBIN 2.7 % (0.5-1.5); BG DEOXYHEMOGLOBIN 2.1 % (0.0-5.0); BG FRACTION INSPIRED OXYGEN 40; BG HCO3 ACT 40.2 mmol/L (22.0-26.0); BG METHEMOGLOBIN 0.3 % (0.0-1.5); BG OXYGEN SATURATION 97.8 % (92.0-98.5); BG OXYHEMOGLOBIN 94.9 % (94.0-97.0); BG PCO2 72.7 mmHg (35.0-45.0); BG PH 7.361 (7.350-7.450); BG PO2 108.5 mmHg (75.0-100.0); BG SAMPLE SITE LEFT RADIAL; BG TOTAL HEMOGLOBIN 15.9 g/dL (12.0-18.0); BG VENT MODE MASK - BIPAP
[2019-11-19] MEDS ORDERED: ENOXAPARIN 40MG/0.4ML SYR SUBCUT SCH (21:30)
[2019-11-19 22:00] VITALS: BP 129/65
[2019-11-19] MEDS ORDERED: DEXTROSE 50% WATER 50ML SYRINGE IV PRN (22:00)
[2019-11-19] MEDS: INSULIN LISPRO 100 UNITS/ML SUBCUT SCH (22:41)
[2019-11-19 23:00] VITALS: BP 124/57
[2019-11-19 23:25] VITALS: BP 135/45
[2019-11-20] VITALS (11 sets, daily range): BP systolic 114–167; BP diastolic 59–106
[2019-11-20] MEDS ORDERED: IPRATROPIUM/ALBUTEROL 0.5-3(2.5)MG/3ML NEB HHN PRN (06:45)
[2019-11-20] MEDS: BLOOD SUGAR DIAGNOSTIC STRIP TEST SCH ×4 (07:30→21:46)
[2019-11-20 07:44] LABS: BASOPHILS % 0.2 % (0.0-2.0); CHLORIDE 96 mEq/L (98-107); EOSINOPHILS % 0.4 % (0.0-5.0); HEMATOCRIT. 44.3 % (42.0-52.0); HEMOGLOBIN. 14.4 g/dL (14.0-18.0); LYMPHOCYTES % 16.7 % (20.0-50.0); MEAN CORPUSCULAR HEMOGLOBIN 29.9 pg (28.0-32.0); MEAN CORPUSCULAR VOLUME 92.1 fL (80.0-94.0); MEAN PLATELET VOLUME 10.4 fl (7.4-10.4); MONOCYTES % 8.5 % (2.0-8.0); NEUTROPHILS % 74.2 % (40.0-76.0); PLATELET 155 x1000/uL (130-400); RED BLOOD CELL COUNT 4.81 mill/uL (4.7-6.1); RED CELL DISTRIBUTION WIDTH 15.3 % (11.6-14.6)
[2019-11-20 07:55] LABS: HDL CHOLESTEROL 32 mg/dL (40-59)
[2019-11-20 07:56] LABS: LDL CHOLESTEROL 53 mg/dL (5-100)
[2019-11-20] MEDS ORDERED: BUDESONIDE 0.5MG/2ML NEB HHN SCH (08:00)
[2019-11-20] MEDS: FUROSEMIDE 40MG/4ML VIAL IVP SCH ×2 (08:02→21:37)
[2019-11-20] MEDS: INSULIN LISPRO 100 UNITS/ML SUBCUT SCH ×4 (08:03→21:49)
[2019-11-20] MEDS: ENOXAPARIN 40MG/0.4ML SYR SUBCUT SCH ×2 (08:03→21:38)
[2019-11-20] MEDS ORDERED: FUROSEMIDE 40MG/4ML VIAL IV SCH (09:00)
[2019-11-20 09:40] LABS: *AMPHETAMINES SCREEN URINE NEGATIVE (NEGATIVE); *BARBITURATES SCREEN URINE NEGATIVE (NEGATIVE)
[2019-11-20 09:41] LABS: *BENZODIAZEPINES SCREEN URINE NEGATIVE (NEGATIVE); *COCAINE SCREEN URINE NEGATIVE (NEGATIVE); CANNABINOID URINE SCREEN PRESUMTIVE POSITIVE (NEGATIVE); METHADONE URINE SCREEN NEGATIVE (NEGATIVE); OPIATES URINE SCREEN NEGATIVE (NEGATIVE); PHENCYCLIDINE URINE SCREEN NEGATIVE (NEGATIVE)
[2019-11-20 09:46] LABS: BG BASE EXCESS 14.4 mmol/L (-2.0-2.0); BG CARBOXYHEMOGLOBIN 2.4 % (0.5-1.5); BG DEOXYHEMOGLOBIN 9.6 % (0.0-5.0); BG FRACTION INSPIRED OXYGEN 28; BG HCO3 ACT 42.4 mmol/L (22.0-26.0); BG METHEMOGLOBIN 0.3 % (0.0-1.5); BG OXYGEN SATURATION 90.1 % (92.0-98.5); BG OXYHEMOGLOBIN 87.7 % (94.0-97.0); BG PCO2 67.6 mmHg (35.0-45.0); BG PH 7.415 (7.350-7.450); BG PO2 57.3 mmHg (75.0-100.0); BG SAMPLE SITE RIGHT RADIAL; BG TOTAL HEMOGLOBIN 14.3 g/dL (12.0-18.0); BG VENT MODE NASAL CANNULA
[2019-11-20] MEDS: DILTIAZEM HCL 30MG TABLET PO SCH ×2 (13:56→21:39)
[2019-11-20] MEDS: ACETAMINOPHEN 325MG TABLET PO PRN (17:24)
[2019-11-21] VITALS (12 sets, daily range): BP systolic 103–148; BP diastolic 67–92
[2019-11-21] MEDS: DILTIAZEM HCL 30MG TABLET PO SCH ×4 (05:45→22:09)
[2019-11-21] MEDS: BLOOD SUGAR DIAGNOSTIC STRIP TEST SCH ×4 (07:50→20:17)
[2019-11-21] MEDS: INSULIN LISPRO 100 UNITS/ML SUBCUT SCH ×4 (08:36→20:17)
[2019-11-21] MEDS: ENOXAPARIN 40MG/0.4ML SYR SUBCUT SCH ×2 (08:36→20:17)
[2019-11-21] MEDS: FUROSEMIDE 40MG/4ML VIAL IVP SCH ×2 (08:36→20:17)
[2019-11-21] MEDS ORDERED: DILTIAZEM HCL 30MG TABLET PO SCH (12:30)
[2019-11-21] MEDS: ACETAMINOPHEN 325MG TABLET PO PRN (22:09)
[2019-11-22] VITALS (11 sets, daily range): BP systolic 100–169; BP diastolic 50–91
[2019-11-22] MEDS: DILTIAZEM HCL 30MG TABLET PO SCH ×2 (06:00→06:39)
[2019-11-22] MEDS: BLOOD SUGAR DIAGNOSTIC STRIP TEST SCH ×4 (07:36→20:34)
[2019-11-22] MEDS: FUROSEMIDE 40MG/4ML VIAL IVP SCH ×2 (08:00→20:33)
[2019-11-22] MEDS: ACETAMINOPHEN 325MG TABLET PO PRN (08:01)
[2019-11-22] MEDS: INSULIN LISPRO 100 UNITS/ML SUBCUT SCH ×5 (08:02→22:49)
[2019-11-22] MEDS: ENOXAPARIN 40MG/0.4ML SYR SUBCUT SCH ×2 (08:02→20:33)
[2019-11-22] MEDS: DILTIAZEM HCL 180MG CAPSULE CD 24HR PO SCH (12:23)
[2019-11-22 12:51] LABS: BG BASE EXCESS 11.7 mmol/L (-2.0-2.0); BG CARBOXYHEMOGLOBIN 1.6 % (0.5-1.5); BG DEOXYHEMOGLOBIN 4.7 % (0.0-5.0); BG FRACTION INSPIRED OXYGEN 32; BG HCO3 ACT 39.5 mmol/L (22.0-26.0); BG METHEMOGLOBIN 0.1 % (0.0-1.5); BG OXYGEN SATURATION 95.2 % (92.0-98.5); BG OXYHEMOGLOBIN 93.6 % (94.0-97.0); BG PH 7.401 (7.350-7.450); BG PO2 77.1 mmHg (75.0-100.0); BG SAMPLE SITE RIGHT RADIAL; BG TOTAL HEMOGLOBIN 14.4 g/dL (12.0-18.0); BG VENT MODE NASAL CANNULA
[2019-11-22 16:54] LABS: BG BASE EXCESS 12.5 mmol/L (-2.0-2.0); BG CARBOXYHEMOGLOBIN 1.6 % (0.5-1.5); BG DEOXYHEMOGLOBIN 14.4 % (0.0-5.0); BG FRACTION INSPIRED OXYGEN 21; BG HCO3 ACT 39.2 mmol/L (22.0-26.0); BG METHEMOGLOBIN 0.3 % (0.0-1.5); BG OXYGEN SATURATION 85.3 % (92.0-98.5); BG OXYHEMOGLOBIN 83.7 % (94.0-97.0); BG PCO2 58.3 mmHg (35.0-45.0); BG PH 7.445 (7.350-7.450); BG PO2 49.8 mmHg (75.0-100.0); BG SAMPLE SITE LEFT RADIAL; BG TOTAL HEMOGLOBIN 14.4 g/dL (12.0-18.0); BG VENT MODE ROOM AIR
[2019-11-22] MEDS: INSULIN GLARGINE UD 100 UNITS/ML SYR SUBCUT SCH (20:34)
[2019-11-23] VITALS (7 sets, daily range): BP systolic 94–144; BP diastolic 60–98
[2019-11-23] MEDS: ACETAMINOPHEN 325MG TABLET PO PRN (05:15)
[2019-11-23] MEDS: BLOOD SUGAR DIAGNOSTIC STRIP TEST SCH ×2 (06:48→11:57)
[2019-11-23] MEDS: INSULIN LISPRO 100 UNITS/ML SUBCUT SCH ×2 (06:48→13:21)
[2019-11-23] MEDS: ENOXAPARIN 40MG/0.4ML SYR SUBCUT SCH (09:45)
[2019-11-23] MEDS: FUROSEMIDE 40MG/4ML VIAL IVP SCH (09:45)
[2019-11-23] MEDS: DILTIAZEM HCL 180MG CAPSULE CD 24HR PO SCH (09:46)
[2019-11-23] MEDS: INSULIN GLARGINE UD 100 UNITS/ML SYR SUBCUT SCH (09:46)
[2019-11-23] MEDS ORDERED: LANTUSUD SUBCUT (12:07)
[2019-11-23] MEDS ORDERED: DILT180C66 PO (12:07)
[2019-11-23] MEDS ORDERED: ATOR10TA69 MT (12:07)
== END 2019-11-23 17:27 | disposition home or self-care (01) | DRG 133 ==
LOC: ER 11:54 → EDBEDREQ 18:29 → EDBEDREQTM 18:29 → EDBEDREQSVC 18:29 → ENRESERV 20:14 → 5EST 21:19
PROVIDERS: ADMIT Internal Medicine; ATTEND Internal Medicine
PROC: 5A09357 Assistance with Respiratory Ventilation, Less than 24 Consecutive Hours, Continuous Positive Airway Pressure (ICD-10-PCS; principal; 2019-11-19)
PROC: 5A09357 Assistance with Respiratory Ventilation, Less than 24 Consecutive Hours, Continuous Positive Airway Pressure (ICD-10-PCS; 2019-11-20)
PROC: 5A09357 Assistance with Respiratory Ventilation, Less than 24 Consecutive Hours, Continuous Positive Airway Pressure (ICD-10-PCS; 2019-11-21)
PROC: 5A09357 Assistance with Respiratory Ventilation, Less than 24 Consecutive Hours, Continuous Positive Airway Pressure (ICD-10-PCS; 2019-11-22)
DX: J96.21 Acute and chronic respiratory failure with hypoxia (principal); I50.33 Acute on chronic diastolic (congestive) heart failure; E87.2 Acidosis; E66.2 Morbid (severe) obesity with alveolar hypoventilation; Z99.81 Dependence on supplemental oxygen; E44.1 Mild protein-calorie malnutrition; I11.0 Hypertensive heart disease with heart failure; J96.22 Acute and chronic respiratory failure with hypercapnia; E11.9 Type 2 diabetes mellitus without complications; Z68.44 Body mass index [BMI] 60.0-69.9, adult; F17.210 Nicotine dependence, cigarettes, uncomplicated; Z82.49 Family history of ischemic heart disease and other diseases of the circulatory system; Z83.3 Family history of diabetes mellitus; Z90.49 Acquired absence of other specified parts of digestive tract; Z93.1 Gastrostomy status; Z79.899 Other long term (current) drug therapy
CPT/HCPCS: 36415; 36600; 71045; 80053; 80061; 80305; 81003; 82375; 82805; 82962; 83735; 83880; 84100; 84443; 84484; 85025; 85379; 93005; 93306; 93970; 97162; 97165; 99291; J1650; J1815; J1940; J7626

== ENCOUNTER 2021-06-17 17:39 | Emergency (ER) | payer MEDICAID, OTHER ==
[~2021-06-17] VITALS: Ht 165.1 cm; Wt 114.0 kg
[~2021-06-17 17:39] MED LIST changes: +ATOR10TA69 MT; +DILT180C66 PO
[2021-06-17 17:45] VITALS: BP 117/79
[2021-06-17] MEDS ORDERED: AMOX-424 MT (20:37)
[2021-06-17] MEDS ORDERED: ACET-2708 MT (20:39)
[2021-06-17] MEDS ORDERED: TETANUS, DIPHTHERIA, PERTUSSIS VAC/PF 0.5ML (>10YR OLD) IM ONE (20:45)
[2021-06-17] MEDS ORDERED: KETOROLAC 30MG/ML VIAL IM ONE (20:45)
== END 2021-06-17 21:05 | disposition home or self-care (01) ==
LOC: ER 17:39
DX: L53.9 Erythematous condition, unspecified (principal); I50.9 Heart failure, unspecified; E11.9 Type 2 diabetes mellitus without complications; Z90.49 Acquired absence of other specified parts of digestive tract; Z79.899 Other long term (current) drug therapy
CPT/HCPCS: 90471; 90715; 96372; 99284; J1885

== ENCOUNTER 2021-12-22 13:38 | Emergency (ER) | payer MEDICAID, OTHER ==
[~2021-12-22] VITALS: Ht 172.7 cm; Wt 97.0 kg
[~2021-12-22 13:38] MED LIST changes: +ACET-2708 MT; +AMOX-424 MT
[2021-12-22 15:02] LABS: BASOPHILS % 0.4 % (0.0-2.0); EOSINOPHILS % 0.8 % (0.0-5.0); HEMATOCRIT. 48.1 % (42.0-52.0); HEMOGLOBIN. 16.7 g/dL (14.0-18.0); LYMPHOCYTES % 32.8 % (20.0-50.0); MEAN CORPUSCULAR HEMOGLOBIN 32.5 pg (28.0-32.0); MEAN CORPUSCULAR VOLUME 93.5 fL (80.0-94.0); MEAN PLATELET VOLUME 10.8 fl (7.4-10.4); MONOCYTES % 7.3 % (2.0-8.0); NEUTROPHILS % 58.7 % (40.0-76.0); PLATELET 147 x1000/uL (130-400); RED BLOOD CELL COUNT 5.14 mill/uL (4.7-6.1); RED CELL DISTRIBUTION WIDTH 12.6 % (11.6-14.6)
[2021-12-22 15:16] LABS: CHLORIDE 99 mEq/L (98-107)
[2021-12-22] MEDS ORDERED: SODIUM CHLORIDE 0.9% 1,000 ML IV ONE (15:45)
[2021-12-22] MEDS ORDERED: INSULIN REGULAR (HUMULIN R) 300UNITS/3ML VIAL SUBCUT ONE (16:45)
[2021-12-22 18:55] VITALS: BP 127/59
== END 2021-12-22 18:57 | disposition home or self-care (01) ==
LOC: ER 13:38
DX: E11.65 Type 2 diabetes mellitus with hyperglycemia (principal); I50.9 Heart failure, unspecified; E11.9 Type 2 diabetes mellitus without complications; Z90.49 Acquired absence of other specified parts of digestive tract
CPT/HCPCS: 36415; 80048; 82010; 82962; 83880; 85025; 85730; 93970; 96360; 96372; 99284; J7030

== ENCOUNTER 2022-07-06 18:01 | Emergency (ER) | payer MEDICAID, OTHER ==
[~2022-07-06] VITALS: Ht 165.1 cm; Wt 91.0 kg
[2022-07-06 18:12] VITALS: BP 133/92
[2022-07-06 22:54] LABS: BASOPHILS % 0.4 % (0.0-2.0); EOSINOPHILS % 0.3 % (0.0-5.0); HEMATOCRIT. 43.1 % (42.0-52.0); HEMOGLOBIN. 14.3 g/dL (14.0-18.0); MEAN CORPUSCULAR HEMOGLOBIN 31.3 pg (28.0-32.0); MEAN CORPUSCULAR VOLUME 94.3 fL (80.0-94.0); MEAN PLATELET VOLUME 11.2 fl (7.4-10.4); MONOCYTES % 5.6 % (2.0-8.0); NEUTROPHILS % 83.7 % (40.0-76.0); PLATELET 120 x1000/uL (130-400); RED BLOOD CELL COUNT 4.57 mill/uL (4.7-6.1); RED CELL DISTRIBUTION WIDTH 12.8 % (11.6-14.6)
[2022-07-06 23:10] LABS: CHLORIDE 85 mEq/L (98-107)
[2022-07-07] MEDS ORDERED: ACETAMINOPHEN 325MG TABLET PO ONE (00:45)
[2022-07-07] MEDS ORDERED: INSULIN REGULAR (HUMULIN R) 300UNITS/3ML VIAL SUBCUT ONE (00:45)
[2022-07-07] MEDS ORDERED: POTASSIUM CHLORIDE 20MEQ TABLET SR PO ONE (01:00)
[2022-07-07] MEDS ORDERED: ASPIRIN 81MG TABLET PO ONE (01:00)
[2022-07-07] MEDS ORDERED: FUROSEMIDE 40MG TABLET PO ONE (01:00)
[2022-07-07 01:47] LABS: *AMPHETAMINES SCREEN URINE NEGATIVE (NEGATIVE); *BARBITURATES SCREEN URINE NEGATIVE (NEGATIVE); *BENZODIAZEPINES SCREEN URINE NEGATIVE (NEGATIVE); *COCAINE SCREEN URINE NEGATIVE (NEGATIVE); CANNABINOID URINE SCREEN PRESUMTIVE POSITIVE (NEGATIVE); METHADONE URINE SCREEN NEGATIVE (NEGATIVE); OPIATES URINE SCREEN NEGATIVE (NEGATIVE); PHENCYCLIDINE URINE SCREEN NEGATIVE (NEGATIVE)
== END 2022-07-07 04:20 | disposition short-term general hospital (02) ==
LOC: ER 18:17 → CANBEDREQ 07-07 07:39
DX: E11.65 Type 2 diabetes mellitus with hyperglycemia (principal); I50.9 Heart failure, unspecified; Z90.49 Acquired absence of other specified parts of digestive tract; Z79.899 Other long term (current) drug therapy; Z20.822 Contact with and (suspected) exposure to COVID-19
CPT/HCPCS: 36415; 71045; 80053; 80305; 82010; 82962; 83880; 84484; 85025; 87426; 93005; 96372; 99285; C9803; J1815; Z7610

== ENCOUNTER 2024-04-15 20:45 | Emergency (ER) | payer MEDICAID, OTHER ==
[~2024-04-15] VITALS: Ht 167.6 cm; Wt 100.0 kg
[2024-04-15 20:49] VITALS: O2SAT 100
[2024-04-15 21:01] VITALS: TEMP 98.6; O2SAT 100
[2024-04-15 21:37] LABS: BASOPHILS % 0.4 % (0.0-2.0); EOSINOPHILS % 1.2 % (0.0-5.0); HEMATOCRIT. 43.9 % (42.0-52.0); HEMOGLOBIN. 14.8 g/dL (14.0-18.0); LYMPHOCYTES % 13.7 % (20.0-50.0); MEAN CORPUSCULAR HEMOGLOBIN 31.4 pg (28.0-32.0); MEAN CORPUSCULAR HGB CONC 33.7 g/dL (31.0-37.0); MEAN CORPUSCULAR VOLUME 93.3 fL (80.0-94.0); MEAN PLATELET VOLUME 9.8 fl (7.4-10.4); NEUTROPHILS % 77.7 % (40.0-76.0); PLATELET 146 x1000/uL (130-400); RED CELL DISTRIBUTION WIDTH 13.3 % (11.6-14.6); WHITE BLOOD COUNT 10.6 x1000/uL (4.5-11.0)
[2024-04-15 21:42] LABS: CARBON DIOXIDE 28 mEq/L (21-32); CHLORIDE 103 mEq/L (98-107); POTASSIUM 3.6 mEq/L (3.5-5.1); SODIUM 136 mEq/L (136-145)
[2024-04-15 21:43] LABS: CALCIUM 9.2 mg/dL (8.7-10.4)
[2024-04-15 21:48] LABS: PROTHROMBIN TIME 10.7 sec (9.6-11.0); UREA NITROGEN BLOOD 10 mg/dL (9-23)
[2024-04-15 21:49] LABS: GLUCOSE 295 mg/dL (70-105)
[2024-04-15] MEDS: SODIUM CHLORIDE 0.9% 1000ML BAG (SEPSIS BOLUS) IV ONE (21:51)
[2024-04-15 21:58] VITALS: BP 116/91; PULSE 92; RESP 18
[2024-04-15] MEDS: VANCOMYCIN 1G PREMIX 200 ML IV ONE (21:58)
[2024-04-15] MEDS: KETOROLAC 30MG/ML VIAL IV STA (21:58)
[2024-04-15] MEDS: SODIUM CHLORIDE 0.9% 1,000 ML IV ONE (22:11)
[2024-04-15 22:16] LABS: ERYTHROCYTE SEDIMENTATION RATE 40 mm/hr (0-15)
== END 2024-04-15 23:52 | disposition short-term general hospital (02) ==
LOC: ER 20:45 → CANBEDREQ 04-16 00:30
DX: L03.115 Cellulitis of right lower limb (principal); I50.9 Heart failure, unspecified; E11.9 Type 2 diabetes mellitus without complications; Z90.49 Acquired absence of other specified parts of digestive tract; Z79.899 Other long term (current) drug therapy
CPT/HCPCS: 99291; 96365; 96375; 80048; 83605; 85025; 85610; 85651; 87040; 36415; 84145; 73620; 93005; J1885; J3370; J7030

== ENCOUNTER 2024-07-06 18:24 | Emergency (ER) | payer OTHER ==
[~2024-07-06] VITALS: Ht 165.1 cm; Wt 73.0 kg
[2024-07-06 18:29] VITALS: O2SAT 98
[2024-07-06 22:26] LABS: CLARITY URINE CLEAR (CLEAR); COLOR URINE YELLOW (YELLOW); GLUCOSE URINE 3+ (NEGATIVE); KETONES URINE TRACE (NEGATIVE); LEUKOCYTE ESTERASE URINE 1+ (NEGATIVE); NITRITE URINE NEGATIVE (NEGATIVE); OCCULT BLOOD URINE NEGATIVE (NEGATIVE); PH URINE 5.5 (4.5-8.0); PROTEIN URINE NEGATIVE (NEGATIVE); SPECIFIC GRAVITY URINE 1.024 (1.005-1.030); UROBILINOGEN URINE 0.2 E.U./dL (0.2-1.0)
[2024-07-06 22:44] LABS: BACTERIA URINE 1+; RBC URINE 0-2 /hpf (0-2); SQUAMOUS EPITHELIAL CELL URINE FEW /lpf (RARE/1+); YEAST URINE 2+
[2024-07-06] MEDS: KETOROLAC 30MG/ML VIAL IM ONE (23:16)
[2024-07-06 23:35] LABS: HEMATOCRIT. 42.3 % (42.0-52.0); HEMOGLOBIN. 13.8 g/dL (14.0-18.0); MEAN CORPUSCULAR HGB CONC 32.6 g/dL (31.0-37.0); MEAN CORPUSCULAR VOLUME 91.8 fL (80.0-94.0); MEAN PLATELET VOLUME 11.2 fl (7.4-10.4); PLATELET 164 x1000/uL (130-400); RED CELL DISTRIBUTION WIDTH 13.3 % (11.6-14.6); WHITE BLOOD COUNT 17.7 x1000/uL (4.5-11.0)
[2024-07-06 23:46] LABS: CHLORIDE 89 mEq/L (98-107); POTASSIUM 3.2 mEq/L (3.5-5.1); SODIUM 126 mEq/L (136-145)
[2024-07-06 23:47] LABS: CALCIUM 8.9 mg/dL (8.7-10.4); CARBON DIOXIDE 29 mEq/L (21-32)
[2024-07-06 23:49] LABS: DIFFERENTIAL COMMENT 1
[2024-07-06 23:52] LABS: CREATININE 1.2 mg/dL (0.6-1.3); UREA NITROGEN BLOOD 6 mg/dL (9-23)
[2024-07-06 23:54] LABS: ALANINE AMINOTRANSFERASE < 7 IU/L (10-49); ALBUMIN 3.7 g/dL (3.2-4.8); ASPARTATE AMINOTRANSFERASE 9 IU/L (<34); BILIRUBIN TOTAL 0.4 mg/dL (0.1-1.0); PROTEIN TOTAL 7.2 g/dL (6.0-8.3)
[2024-07-07] MEDS ORDERED: CEFTRIAXONE 1GM/50ML 50 ML IV ONE (00:30)
[2024-07-07] MEDS ORDERED: FLUCONAZOLE 100MG TABLET PO ONE (00:30)
[2024-07-07 00:40] LABS: GLUCOSE 680 mg/dL (70-105)
[2024-07-07] MEDS ORDERED: FLUCONAZOLE 150MG TABLET PO NR (00:45)
[2024-07-07 01:25] LABS: PLATELET ESTIMATE NORMAL
[2024-07-07] MEDS: CEFTRIAXONE 1GM/50ML 50 ML IV NR (01:39)
[2024-07-07] MEDS: SODIUM CHLORIDE 0.9% 1,000 ML IV ONE (01:39)
[2024-07-07] MEDS: DOXYCYCLINE HYCLATE 100MG CAPSULE PO ONE (01:44)
[2024-07-07] MEDS: POTASSIUM CHLORIDE 20MEQ/PACKET PO ONE (02:22)
[2024-07-07] MEDS: SODIUM CHLORIDE 0.9% (SEPSIS BOLUS) IV ONE (02:31)
[2024-07-07] MEDS: FLUCONAZOLE 50MG TABLET PO NR (02:37)
[2024-07-07] MEDS: KCL 20MEQ/100ML PREMIX 100 ML IV SCH (02:41)
[2024-07-07] MEDS: INSULIN REGULAR (HUMULIN R) 1000UNITS/10ML VIAL IV ONE (03:43)
[2024-07-07 05:00] VITALS: BP 93/58; PULSE 85; RESP 20; TEMP 36.50292; O2SAT 100
== END 2024-07-07 05:03 | disposition short-term general hospital (02) ==
LOC: ER 18:24 → EDBEDREQTM 07-07 03:47 → ER 07-07 05:03
DX: N45.2 Orchitis (principal); N48.1 Balanitis; E87.6 Hypokalemia; E86.0 Dehydration; E11.65 Type 2 diabetes mellitus with hyperglycemia; I50.9 Heart failure, unspecified; Z79.899 Other long term (current) drug therapy; Z90.49 Acquired absence of other specified parts of digestive tract; Z90.89 Acquired absence of other organs
CPT/HCPCS: 80053; 81003; 82010; 85025; 36415; 93976; 76870; 96372; 99285; 82962; 87106; 87040; 87086; 71045; 96367; 96365; 96375; J1885; J0696; J1815; J3480; J7030; Z7610